=== PATIENT | female | born 1935 | race Hispanic/Latino ===

== ENCOUNTER 2019-05-18 11:47 | Emergency (ER) | payer MEDICARE, OTHER ==
[~2019-05-18] VITALS: Ht 154.9 cm; Wt 62.3 kg
[2019-05-18] MEDS ORDERED: NASONEX17 GM (13:06)
[2019-05-18] MEDS ORDERED: AMOXICILLIN250 MG PO (13:07)
[2019-05-18] MEDS ORDERED: MYLANTA GAS MIN42 MG PEG (13:07)
[2019-05-18 13:25] VITALS: BP 164/71
== END 2019-05-18 13:20 | disposition home or self-care (01) ==
LOC: FSED 11:47
DX: H65.02 Acute serous otitis media, left ear (principal); I10 Essential (primary) hypertension
CPT/HCPCS: 99282

== ENCOUNTER 2019-10-18 21:42 | Inpatient (IN) | payer MEDICARE, OTHER ==
[~2019-10-18] VITALS: Ht 165.1 cm; Wt 63.5 kg
[~2019-10-18 21:42] MED LIST: AMOXICILLIN250 MG PO; MYLANTA GAS MIN42 MG PEG; NASONEX17 GM
[2019-10-18] MEDS ORDERED: ACETAMINOPHEN 325 MG TAB PO ONE (22:45)
--- NOTE | 2019-10-18 23:01 | Diagnostic Imaging Report ---
Examination: Single AP view of the chest. COMPARISON: None. INDICATION: Chills, fever, diarrhea for one day IMPRESSION: 1. Lines and Tubes: None 2. Lungs are hypoinflated. Diffuse bilateral interstitial and alveolar opacities extending from the kevon. Likely small left pleural effusion. This may represent CHF with interstitial and alveolar pulmonary edema, however, multifocal pneumonia, including viral, could be considered in the appropriate clinical setting. 3. Cardiac silhouette is obscured. Marked central pulmonary vascular congestion. Atherosclerotic calcification of the aortic arch. 4. No acute bony abnormalities. Generalized osteopenia. Signed by: Dr. Ted Gates M.D. on 10/18/2019 10:58 PM
[2019-10-19] VITALS (7 sets, daily range): BP systolic 139–154; BP diastolic 53–65
[2019-10-19] MEDS ORDERED: ASPIRIN 81 MG CHEW TAB PO ONE
[2019-10-19] MEDS ORDERED: AZITHROMYCIN 500MG/NS 250 ML 250 ML IV ONE
[2019-10-19] MEDS ORDERED: DEXAMETHASONE SOD PHOS 10 MG/1 ML VIAL IV ONE
[2019-10-19] MEDS ORDERED: SODIUM CHLORIDE 0.9% 1000ML 1,000 ML IV SCH
[2019-10-19] MEDS ORDERED: CEFTRIAXONE SOD 1 GM/NS 50 ML 50 ML IV ONE
[2019-10-19] MEDS ORDERED: ONDANSETRON HCL INJ 2MG/ML 2ML 2 MG/ML VIAL IV PRN
--- NOTE | 2019-10-19 01:44 | NUR ---
AWAITING [facility] ROOM ASSIGNMENT
--- NOTE | 2019-10-19 02:52 | NUR ---
CALLED [facility] FOR TRANSPORT TO [facility]. ETA 30-45MINS
--- NOTE | 2019-10-19 04:04 | NUR ---
REPORT TO RASHID WALTON FOR [facility]
--- NOTE | 2019-10-19 04:10 | NUR ---
patient is a new admit that arrived via stretcher. patient is awake and talking. patient has been transferred into the bed. bed is in the lowest position and call light is within reach. will continue to monitor patient.
--- NOTE | 2019-10-19 06:54 | NUR ---
RECEIVED BEDSIDE SHIFT REPORT FROM OFF GOING NURSE. PATIENT IS RESTING IN BED. NO ACUTE DISTRESS NOTED AT THIS TIME. CALL LIGHT WITHIN REACH. BED IN THE LOWEST POSITION.
--- NOTE | 2019-10-19 07:15 | NUR ---
report given to day nurse.
--- NOTE | 2019-10-19 07:57 | NUR ---
CALLED DAUGHTER JEREMY HELTON TO OBTAIN LIST OF HOME MEDICATIONS. NO ANSWER, LVM.
[2019-10-19 08:14] LABS: CREATINE KINASE MB 1.6 ng/mL (0-5.0)
[2019-10-19] MEDS ORDERED: FUROSEMIDE INJ 10 MG/ML 4 ML VIAL IV SCH (08:15)
[2019-10-19] MEDS ORDERED: CARVEDILOL12.5 MG PO (09:33)
[2019-10-19] MEDS ORDERED: POTASSIUM CHLO20 ME1 PO (09:33)
[2019-10-19] MEDS ORDERED: LASIX20 MG PO (09:33)
[2019-10-19] MEDS ORDERED: SODIUM CHLORIDE 0.9% 50ML 50 ML ONE (10:42)
[2019-10-19] MEDS ORDERED: IOPAMIDOL 370 MG/ML 200 ML INFUS..BTL INJ ONE (10:42)
[2019-10-19 10:49] LABS: BASOPHILS % 0.2 % (0.0-1.0); EOSINOPHILS % 0.1 % (0.0-6.0); HEMATOCRIT 34.6 % (34.2-44.1); HEMOGLOBIN 11.8 g/dL (12.0-16.0); LYMPHOCYTES # (AUTO) 1.4 (1.0-3.2); LYMPHOCYTES % 12.3 % (18.0-39.1); MEAN CORPUSCULAR HEMOGLOBIN 29.4 pg (28-32); MEAN CORPUSCULAR HGB CONC 34.1 g/dL (31-35); MEAN CORPUSCULAR VOLUME 86.1 fL (81-99); MONOCYTES # (AUTO) 1.2 (0.2-0.8); MONOCYTES % 10.4 % (4.4-11.3); NEUTROPHILS % 76.6 % (38.7-80.0); PLATELET COUNT 189 x10e3/uL (140-360); RED BLOOD COUNT 4.02 x10e6/uL (3.6-5.1); RED CELL DISTRIBUTION WIDTH 13.2 % (11.7-14.4)
[2019-10-19 11:00] LABS: ANION GAP 13.6 mmol/L (8-16); CALCIUM 8.8 mg/dL (8.4-10.2); CREATININE, SERUM 1.62 mg/dL (0.57-1.11); POTASSIUM 3.6 mmol/L (3.5-5.1)
[2019-10-19] MEDS ORDERED: GUAIFENESIN/CODEINE 10 ML CUP PO PRN (11:15)
[2019-10-19] MEDS ORDERED: DEXTROSE 50% SYRINGE 50 ML IV PRN (11:15)
[2019-10-19] MEDS ORDERED: BENZONATATE 100 MG CAP PO PRN (11:15)
--- NOTE | 2019-10-19 11:38 | History and Physical ---
CHIEF COMPLAINT: Cough, congestion, and subjective fever. HISTORY OF PRESENT ILLNESS: An 84-year-old female, who has a history of hypertension, comes in today as a direct admission [facility] with complaints of cough, congestion, and subjective fever ongoing for the last 3 to 4 days. The patient recently saw her primary care physician and was told to take some increase Lasix. She reports she initially felt well, but then progressively got worse. She reports having cough, congestion, and subjective fever. Denies any recent travel. No sick contacts at home. The patient is being admitted to rule out for COVID. The patient was seen and evaluated at bedside on the medical floor. She is currently doing well. She is on a non-rebreather. Pulmonary and ID has been consulted. REVIEW OF SYSTEMS: Pertinent positive: Cough, congestion, and fever. The rest of 14-point review of systems have been reviewed with the patient and are negative. ALLERGIES: NO KNOWN DRUG ALLERGIES. HOME MEDICATIONS: Coreg 12.5 mg p.o. b.i.d., Lasix, and potassium supplements. PAST MEDICAL HISTORY: Hypertension and morbidly obese. PAST SURGICAL HISTORY: Reports none. FAMILY HISTORY: Hypertension and diabetes. SOCIAL HISTORY: No drugs. No alcohol. Does not smoke. Good social support. PHYSICAL EXAMINATION: VITAL SIGNS: Temperature is 98, pulse 79, respiratory rate is 34, blood pressure 146/65, and pulse ox 92%. She is on a 15 L non-rebreather. GENERAL: Not in acute distress. Alert and oriented x3. She is on 15 L non-rebreather. PULMONARY: No wheezing, rales, or rhonchi. CARDIOVASCULAR: Positive S1 and S2. No murmurs, rubs, or gallops appreciated. ABDOMEN: Soft, nondistended, and nontender to palpation. Bowel sounds present. MUSCULOSKELETAL: Strength is 5/5 throughout. No evidence of any muscle deficits on examination. No weakness appreciated. NEUROLOGIC: Cranial nerves 2 through 12 grossly intact. No evidence of any neurological deficits on exam. SKIN: Intact. Warm to touch. Good cap refill. PSYCHIATRIC: Normal affect and mood. EXTREMITIES: No edema. Good range of motion throughout. LABORATORY FINDINGS: Show white count 11.7, hemoglobin 11.8, hematocrit is 34.6, and platelets of 189. The chemistries are pending. Her troponin 0.039. Coronavirus is pending. MICROBIOLOGY: Blood cultures are pending. IMAGING STUDIES: Chest x-ray shows diffuse bilateral interstitial alveolar opacities extending from the hilum, likely small left pleural effusion. IMPRESSION: 1. Acute respiratory distress, concerns for COVID-19 pneumonia. 2. Hypotension. 3. Shortness of breath secondary to #1. PLAN: At this time, the patient's symptomatology and imaging studies concerning for COVID-19. The patient received IV antibiotics and dexamethasone already at the [facility]. We will continue with steroids, dexamethasone, and vitamins. Get Pulmonary and ID consultation. Stop fluids. Lasix 80 mg IV x1 given. She is on a non-rebreather. We will put her on ProAir to help with her underlying shortness of breath. Put on Lovenox 40 mg subcutaneous b.i.d. We will get inflammatory markers. Put on a heart healthy diet. Discussed plan of care with nursing staff. I also discussed the plan of care with the patient at bedside using a glazier supervisor. MD JONELLE Aldrich/MODL /[id number]
--- NOTE | 2019-10-19 12:13 | Diagnostic Imaging Report ---
EXAM: CT Chest WITH contrast- Pulmonary Embolism Protocol INDICATION: Shortness of breath COMPARISON: None TECHNIQUE: Chest was scanned utilizing a multidetector helical scanner from the lung apex through the level of the diaphragm after administration of IV contrast. Thin section reconstructions were obtained with special concentration on the pulmonary arteries. Coronal and sagittal reformations were obtained. Pulmonary embolism protocol was performed. IV CONTRAST: 100 cc of Isovue 370 RADIATION DOSE: Total DLP: 528 mGy*cm Dose modulation, iterative reconstruction, and/or weight based adjustment of the mA/kV was utilized to reduce the radiation dose to as low as reasonably achievable. COMPLICATIONS: None FINDINGS: LINES/ TUBES: None. PULMONARY ARTERIES: No filling defect is identified within the pulmonary arteries to the segmental level. The subsegmental pulmonary arteries are not well opacified. Main pulmonary artery measures 2.2 cm in diameter. No right heart strain. LUNGS AND AIRWAYS: The central airways are patent. Bilateral dependent lower lobe subsegmental atelectasis. Multifocal consolidative opacities at the right upper lobe. Geographic groundglass opacities and smooth interlobular septal thickening consistent with component of pulmonary edema. PLEURA: Moderate bilateral pleural effusions. No pneumothorax. HEART AND MEDIASTINUM: The thyroid gland is normal. No mediastinal, hilar or axillary lymphadenopathy. The heart is normal in size.. There is no pericardial effusion. Scattered atherosclerotic calcifications of the thoracic aorta.. UPPER ABDOMEN: Multiple hepatic cysts, the largest measuring up to 5.6 cm and the left liver. No acute findings in the upper abdomen. BONES: No acute osseous injury. No suspicious lytic or blastic lesions. SOFT TISSUES: Unremarkable. IMPRESSION: No pulmonary embolism. Mild pulmonary edema and moderate bilateral pleural effusions. Dependent bilateral lower lobe subsegmental atelectasis. Scattered consolidative opacities at the right upper lobe may represent superimposed aspiration or pneumonia in the proper clinical setting. Signed by: Rohan Elliott MD on 10/19/2019 12:09 PM
[2019-10-19] MEDS ORDERED: SODIUM CHLORIDE 0.9% 250ML 250 ML IV ONE (12:15)
[2019-10-19] MEDS: DEXAMETHASONE SOD PHOS INJ 4 MG/ML VIAL IV SCH (12:29)
[2019-10-19] MEDS: ZINC SULFATE 220 MG CAP PO SCH (12:30)
[2019-10-19] MEDS: CEFTRIAXONE SOD 1 GM/NS 50 ML 50 ML IV SCH (12:30)
[2019-10-19] MEDS: PANTOPRAZOLE SOD 40 MG TABEC PO SCH (12:30)
--- NOTE | 2019-10-19 12:30 | NUR ---
PER DR. ROWE, PATIENT IS TO GET 250ML OF NS AFTER CT. PATIENT IS RECEIVING THE 250ML FROM NS BAG 1,000ML STARTED WHEN ADMITTED.
[2019-10-19] MEDS: SIMETHICONE 80 MG CHEW PO PRN (12:34)
[2019-10-19] MEDS: AZITHROMYCIN 500MG/NS 250 ML 250 ML IV SCH (13:44)
--- NOTE | 2019-10-19 14:35 | NUR ---
An 84-year-old female, who has a history of hypertension, comes in today as a direct admission [facility] with complaints of cough, congestion, and subjective fever ongoing for the last 3 to 4 days. The patient recently saw her primary care physician and was told to take some increase Lasix. She reports she initially felt well, but then progressively got worse. She reports having cough, congestion, and subjective fever. Denies any recent travel. No sick contacts at home. The patient is being admitted to rule out for COVID. The patient was seen and evaluated at bedside on the medical floor. She is currently doing well. She is on a non-rebreather. Pulmonary and ID has been consulted. REVIEW OF SYSTEMS: Pertinent positive: Cough, congestion, and fever. The rest of 14-point review of systems have been reviewed with the patient and are negative. ALLERGIES: NO KNOWN DRUG ALLERGIES. HOME MEDICATIONS: Coreg 12.5 mg p.o. b.i.d., Lasix, and potassium supplements. PAST MEDICAL HISTORY: Hypertension and morbidly obese. PAST SURGICAL HISTORY: Reports none. FAMILY HISTORY: Hypertension and diabetes. SOCIAL HISTORY: No drugs. No alcohol. Does not smoke. Good social support. [id number]
[2019-10-19] MEDS: ENOXAPARIN SOD INJ 40 MG/0.4 ML SYR SC SCH (15:22)
--- NOTE | 2019-10-19 16:10 | Consultation ---
DATE OF CONSULTATION: HISTORY OF PRESENT ILLNESS: Ms. Moore is an 84-year-old female, who comes in with one-week history of fever, chills, not feeling well, some abdominal discomfort. The patient became weak. The patient, who is currently lying in bed comfortably, just weak and have some abdominal pain as mentioned above. Ms. Moore is currently on 15% non-rebreather, short of breath. PAST MEDICAL HISTORY: As above. PAST SURGICAL HISTORY: As above. ALLERGIES: NKA. LABORATORY DATA: White count 11.7 and hemoglobin 11. Her COVID-19 still pending. Her sodium 138, potassium 3.6, and creatinine 1.62. PHYSICAL EXAMINATION: GENERAL: She is currently alert, comfortable. VITAL SIGNS: Stable, currently afebrile. HEENT: Not icteric. CHEST: Crackles. HEART: S1 and S2. No murmur. ABDOMEN: Soft. IMPRESSION: Very suspicious for COVID-19, await confirmation, respiratory failure. Agree Rocephin 1 g daily 5 days, azithromycin 500 mg daily for 3 days, dexamethasone for 10 days. With her kidney function, she is not a candidate for remdesivir. Also lowered her Lovenox to 40 mg daily. Continue oxygenation support. We will follow. MD CODI Unger/MODL /[id number]
[2019-10-19] MEDS: CARVEDILOL 12.5 MG TAB PO SCH (16:38)
[2019-10-19] MEDS: ASCORBIC ACID 500 MG TAB PO SCH (16:38)
--- NOTE | 2019-10-19 19:07 | NUR ---
BEDSIDE SHIFT REPORT GIVEN TO ONCOMING NURSE. PATIENT IS IN STABLE CONDITION, NO ACUTE DISTRESS NOTED AT THIS TIME. CALL LIGHT WITHIN REACH. BED IN THE LOWEST POSITION.
--- NOTE | 2019-10-19 19:16 | Consultation ---
DATE OF CONSULTATION: Pulmonary Critical Care Consultation CHIEF COMPLAINT: Dyspnea and cough. HISTORY OF PRESENT ILLNESS: The patient is an 84-year-old woman. She has a history of hypertension and prior congestive heart failure. [facility] complaining of worsening cough and dyspnea for 3 to 4 days. She subsequently had a CT scan of the chest that showed no pulmonary embolism. She had bilateral effusions and cephalization consistent with pulmonary edema. There is also some infiltrate in the right upper lobe suggesting possible superimposed pneumonia. PAST SURGICAL HISTORY: Not obtainable. PAST MEDICAL HISTORY: 1. Congestive heart failure. 2. Hypertension. FAMILY HISTORY: Family history is significant for diabetes in hypertension. SOCIAL HISTORY: The patient is not an active smoker. She is not an active drinker. REVIEW OF SYSTEMS: The patient complains of dyspnea and cough that has been worsening over the past several days. She did have a temperature to 100.7. She has no headache. She has no neck pain. She is not having any chest pain. She does note some cough. She has no abdominal pain. She has no nausea vomiting. She has some mild leg edema. PHYSICAL EXAMINATION: VITAL SIGNS: The blood pressure is 149/61, saturation is 93% on a non-rebreather. HEENT: Shows no facial swelling or erythema. CARDIAC: Reveals regular rate and rhythm with normal S1 and S2. LUNGS: Auscultation of lungs reveals crackles and rhonchi at the bases. There is no wheezing. ABDOMEN: Soft and nontender. There is no rebound or guarding. EXTREMITIES: Shows mild leg edema. NEUROLOGIC: Shows no focal abnormalities. LABORATORY DATA: White blood cell count is 11.7 and hemoglobin is 11.8. The platelet count is 189. BUN to creatinine ratio is 41 to 1.62 and the other electrolytes are within normal limits. IMPRESSION: 1. Acute on chronic heart failure, unspecified. 2. Acute respiratory failure. 3. Right upper lobe infiltrate suggesting possible superimposed pneumonia. 4. Acute kidney injury. 5. Hypertension. 6. Possible COVID-19 infection. PLAN: 1. Echocardiogram and BNP. 2. Lasix. 3. Cardiology consultation. 4. Continue Zithromax and Rocephin. 5. Await COVID-19 testing. 6. ABG. 7. Wean oxygen as tolerated. MD RUBÉN Lovell/UNAL /[id number]
--- NOTE | 2019-10-19 19:20 | NUR ---
Patient visited in room during nursing rounds. Patient alert and oriented x3. Dutch speaking and understand little gibraltarian language. Ambulatory with standby assist prn in room. On 15L Non-rebreather mask at this time with O2 sat at 96%. Pt receiving NS at 50 for max of 250ml per MD order then saline locked. Call mcwilliams within reach. Will monitor pt closely.
[2019-10-19 20:15] LABS: ABG PCO2 30 mmHg (35-45); ABG PH 7.47 (7.35-7.45)
[2019-10-19 20:16] LABS: ABG HCO3 22 mmol/L (22-26); ABG PO2 62 mmHg (80-105)
[2019-10-19] MEDS: FUROSEMIDE INJ 10 MG/ML 4 ML VIAL IV SCH (20:40)
[2019-10-19] MEDS ORDERED: ENOXAPARIN SOD INJ 40 MG/0.4 ML SYR SC SCH (21:00)
--- NOTE | 2019-10-19 22:48 | NUR ---
Patient ate snack (2 khanh crackers and 1 cup low fat milk).
[2019-10-20] VITALS (8 sets, daily range): BP systolic 132–154; BP diastolic 47–69
[2019-10-20 05:47] LABS: BASOPHILS % 0.1 % (0.0-1.0); HEMATOCRIT 31.9 % (34.2-44.1); LYMPHOCYTES # (AUTO) 0.8 (1.0-3.2); LYMPHOCYTES % 7.4 % (18.0-39.1); MEAN CORPUSCULAR HEMOGLOBIN 28.9 pg (28-32); MEAN CORPUSCULAR HGB CONC 34.5 g/dL (31-35); MEAN CORPUSCULAR VOLUME 83.9 fL (81-99); MONOCYTES # (AUTO) 0.4 (0.2-0.8); MONOCYTES % 4.1 % (4.4-11.3); NEUTROPHILS # (AUTO) 9.2 (2.1-6.9); NEUTROPHILS % 87.8 % (38.7-80.0); PLATELET COUNT 207 x10e3/uL (140-360)
[2019-10-20 06:20] LABS: ALBUMIN 3.1 g/dL (3.5-5.0); ALBUMIN/GLOBULIN RATIO 0.7 (0.8-2.0); ANION GAP 16.4 mmol/L (8-16); CALCIUM 8.5 mg/dL (8.4-10.2); CREATININE, SERUM 1.81 mg/dL (0.57-1.11); POTASSIUM 3.4 mmol/L (3.5-5.1)
--- NOTE | 2019-10-20 06:42 | NUR ---
RECEIVED BEDSIDE SHIFT REPORT FROM OFF GOING NURSE. PATIENT IS RESTING IN BED, NO S/S OF ACUTE DISTRESS NOTED. CALL LIGHT WITHIN REACH. BED IN THE LOWEST POSITION.
[2019-10-20] MEDS: FUROSEMIDE INJ 10 MG/ML 4 ML VIAL IV SCH ×2 (08:26→22:00)
[2019-10-20] MEDS: PANTOPRAZOLE SOD 40 MG TABEC PO SCH (08:26)
[2019-10-20] MEDS: DEXAMETHASONE SOD PHOS INJ 4 MG/ML VIAL IV SCH (08:26)
[2019-10-20] MEDS: ZINC SULFATE 220 MG CAP PO SCH (08:27)
[2019-10-20] MEDS: ASCORBIC ACID 500 MG TAB PO SCH ×2 (08:27→16:59)
[2019-10-20] MEDS: CARVEDILOL 12.5 MG TAB PO SCH ×2 (08:27→16:59)
[2019-10-20] MEDS: CEFTRIAXONE SOD 1 GM/NS 50 ML 50 ML IV SCH (12:00)
--- NOTE | 2019-10-20 12:07 | NUR ---
NOTIFIED DR. CARSON OF PATIENT'S BG OF 220. PATIENT WAS ON STEROIDS, ORDER DCD BY MD. WAITING RADIO PROGRAM CHECKER BACK.
[2019-10-20] MEDS ORDERED: POTASSIUM CHLORIDE 20 MEQ TAB CR PO SCH (12:15)
[2019-10-20] MEDS: AZITHROMYCIN 500MG/NS 250 ML 250 ML IV SCH (12:40)
[2019-10-20] MEDS: ENOXAPARIN SOD INJ 40 MG/0.4 ML SYR SC SCH (14:00)
--- NOTE | 2019-10-20 15:26 | Progress Note ---
DATE: 10/20/2019 Medicine Progress Note SUBJECTIVE: The patient is doing a little better today with no complaints. She states she is breathing much better now after given IV diuretics. No overnight events. COVID was found to be negative. PHYSICAL EXAMINATION: VITAL SIGNS: Temperature is 97.9, pulse 66, respiratory rate is 22, blood pressure 140/65, pulse ox 98% and she is on 6 L of nasal cannula. GENERAL: Not in acute distress. Alert and oriented x3. Cooperative on examination. HEENT: Head; normocephalic, atraumatic. Eyes; pupils are equal, round, and reactive to light bilaterally. Extraocular movements intact bilaterally. Throat; no evidence of erythema or exudates in the posterior pharynx. Has poor dentition. NECK: Supple. Good range of motion. PULMONARY: Clear to auscultation bilaterally. No wheezing, no rales, no rhonchi, no crackles appreciated. CARDIOVASCULAR: Positive S1 and S2. No murmurs, rubs, or gallops appreciated. ABDOMEN: Soft, nondistended, and nontender to palpation. Bowel sounds present. MUSCULOSKELETAL: Strength is 5/5 throughout. No evidence of any muscle deficits on examination. No weakness appreciated. NEUROLOGIC: Alert and oriented x3. SKIN: Intact. Warm to touch. Good cap refill. PSYCHIATRIC: Normal affect and mood. EXTREMITIES: No edema. Good range of motion throughout. LABORATORY DATA: Show white count 10.4, hemoglobin 11, hematocrit is 31.9, and platelets of 207. Chemistry; sodium 139, potassium 3.4, chloride 103, bicarb 23, anion gap of 16, BUN is 47, creatinine is 1.81, glucose is 150, and calcium is 8.5. LFTs within normal range. Albumin was 3.1. Coronavirus not detected. MICROBIOLOGY: Blood cultures, no growth to date. IMAGING: CT chest impression shows no evidence of pulmonary embolism. Mild pulmonary edema with moderate bilateral pleural effusion. Scattered consolidative opacities at the right upper lobe may represent superimposed aspiration or pneumonia in the appropriate clinical setting. IMPRESSION: 1. Acute respiratory distress secondary to pulmonary edema. 2. Acute exacerbation of congestive heart failure with systolic dysfunction. 3. COVID-19 pneumonia negative. 4. Community-acquired pneumonia. PLAN: At this time, I stopped the IV dexamethasone. Continue with IV antibiotics for possible community-acquired pneumonia. She is doing actually much better. She is on Lasix 80 mg b.i.d. Pulmonary and ID are following closely. I did decrease the Lovenox to subcutaneous daily. The patient's primary global engineering manager has been consulted as well. Get morning labs. 2D echo is pending. Otherwise, the patient is doing much better. Discussed plan of care with the patient and nursing staff. MD JONELLE Aldrich/SANDIE /[id number]
--- NOTE | 2019-10-20 16:50 | NUR ---
DR. CARSON NOTIFIED OF OF 256, WAITING CREDIT ANALYSIS MANAGER BACK.
--- NOTE | 2019-10-20 18:12 | NUR ---
Dyspnea and cough. HISTORY OF PRESENT ILLNESS: The patient is an 84-year-old woman. She has a history of hypertension and prior congestive heart failure. [facility] complaining of worsening cough and dyspnea for 3 to 4 days. She subsequently had a CT scan of the chest that showed no pulmonary embolism. She had bilateral effusions and cephalization consistent with pulmonary edema. There is also some infiltrate in the right upper lobe suggesting possible superimposed pneumonia. PHYSICAL EXAMINATION: GENERAL: She is currently alert, comfortable. VITAL SIGNS: Stable, currently afebrile. HEENT: Not icteric. CHEST: Crackles. HEART: S1 and S2. No murmur. ABDOMEN: Soft.NT COVID NEG ATYPICAL PNEUMONIA 1. Acute respiratory distress secondary to pulmonary edema. 2. Acute exacerbation of congestive heart failure with systolic dysfunction. 3. COVID-19 pneumonia negative. 4. Community-acquired pneumonia. CONT ABX CONT OXGYGEN
--- NOTE | 2019-10-20 19:32 | NUR ---
BEDSIDE SHIFT REPORT GIVEN TO ONCOMING NURSE. NO ACUTE DISTRESS NOTED AT THIS TIME. CALL LIGHT WITHIN REACH. BED IN THE LOWEST POSITION.
--- NOTE | 2019-10-20 19:45 | NUR ---
Patient visited in room during nursing rounds. Patient alert and oriented x3. Northern Irish speaking and understand little belizean language. Ambulatory with standby assist prn in room. On 6L nasal cannula at this time with O2 sat at 92%. Pt was transferred from Rm 297 to Rm 295 after covid result came out negative. Call mcwilliams within reach. Will monitor pt closely.
[2019-10-21] VITALS (7 sets, daily range): BP systolic 146–168; BP diastolic 55–86
[2019-10-21] MEDS: HYDROCODONE/APAP 5MG-325MG TAB PO PRN ×2 (01:24→21:57)
[2019-10-21 06:09] LABS: HEMATOCRIT 31.6 % (34.2-44.1); HEMOGLOBIN 11.4 g/dL (12.0-16.0); LYMPHOCYTES # (AUTO) 0.8 (1.0-3.2); LYMPHOCYTES % 7.7 % (18.0-39.1); MEAN CORPUSCULAR HGB CONC 36.1 g/dL (31-35); MEAN CORPUSCULAR VOLUME 85.9 fL (81-99); MONOCYTES # (AUTO) 0.7 (0.2-0.8); MONOCYTES % 6.3 % (4.4-11.3); NEUTROPHILS # (AUTO) 9.2 (2.1-6.9); NEUTROPHILS % 85.3 % (38.7-80.0); PLATELET COUNT 216 x10e3/uL (140-360); RED BLOOD COUNT 3.68 x10e6/uL (3.6-5.1); RED CELL DISTRIBUTION WIDTH 13.2 % (11.7-14.4)
[2019-10-21 06:38] LABS: ANION GAP 15.5 mmol/L (8-16); CALCIUM 8.1 mg/dL (8.4-10.2); CREATININE, SERUM 1.61 mg/dL (0.57-1.11); POTASSIUM 3.5 mmol/L (3.5-5.1)
[2019-10-21] MEDS: FUROSEMIDE INJ 10 MG/ML 4 ML VIAL IV SCH (08:40)
[2019-10-21] MEDS: PANTOPRAZOLE SOD 40 MG TABEC PO SCH (08:40)
[2019-10-21] MEDS: CARVEDILOL 12.5 MG TAB PO SCH ×2 (08:41→17:28)
[2019-10-21] MEDS: ASCORBIC ACID 500 MG TAB PO SCH ×2 (08:41→17:28)
[2019-10-21] MEDS: ZINC SULFATE 220 MG CAP PO SCH (08:41)
[2019-10-21] MEDS ORDERED: SODIUM CHLORIDE 0.9% 250ML 250 ML ONE (11:10)
[2019-10-21] MEDS: CEFTRIAXONE SOD 1 GM/NS 50 ML 50 ML IV SCH (12:08)
[2019-10-21] MEDS: AZITHROMYCIN 500MG/NS 250 ML 250 ML IV SCH (12:40)
[2019-10-21] MEDS: FUROSEMIDE INJ 100 MG in SODIUM CHLORIDE 0.9% 100 ML 90 ML IV SCH (14:20)
--- NOTE | 2019-10-21 14:57 | NUR ---
this is infectious disease progress note patient is doing well and there is no new complaints lying in bed comfortably. laboratory review of chart reviewed medication list reviewed. The patient is doing a little better today with no complaints. She states she is breathing much better now after given IV diuretics. No overnight events. COVID was found to be negative. PHYSICAL EXAMINATION: VITAL SIGNS: Temperature is 97.9, pulse 66, respiratory rate is 22, blood pressure 140/65, pulse ox 98% and she is on 6 L of nasal cannula. GENERAL: Not in acute distress. Alert and oriented x3. Cooperative on examination. HEENT: Head; normocephalic, atraumatic. Eyes; pupils are equal, round, and reactive to light bilaterally. Extraocular movements intact bilaterally. Throat; no evidence of erythema or exudates in the posterior pharynx. Has poor dentition. NECK: Supple. Good range of motion. PULMONARY: Clear to auscultation bilaterally. No wheezing, no rales, no rhonchi, no crackles appreciated. CARDIOVASCULAR: Positive S1 and S2. No murmurs, rubs, or gallops appreciated. ABDOMEN: Soft, nondistended, and nontender to palpation. Bowel sounds present. MUSCULOSKELETAL: Strength is 5/5 throughout. No evidence of any muscle deficits on examination. No weakness appreciated. NEUROLOGIC: Alert and oriented x3. SKIN: Intact. Warm to touch. Good cap refill. PSYCHIATRIC: Normal affect and mood. EXTREMITIES: No edema. Good range of motion throughout. LABORATORY DATA: Show white count 10.4, hemoglobin 11, hematocrit is 31.9, and platelets of 207. Chemistry; sodium 139, potassium 3.4, chloride 103, bicarb 23, anion gap of 16, BUN is 47, creatinine is 1.81, glucose is 150, and calcium is 8.5. LFTs within normal range. Albumin was 3.1. Coronavirus not detected. MICROBIOLOGY: Blood cultures, no growth to date. IMAGING: CT chest impression shows no evidence of pulmonary embolism. Mild pulmonary edema with moderate bilateral pleural effusion. Scattered consolidative opacities at the right upper lobe may represent superimposed aspiration or pneumonia in the appropriate clinical setting. IMPRESSION: 1. Acute respiratory distress secondary to pulmonary edema. 2. Acute exacerbation of congestive heart failure with systolic dysfunction. 3. COVID-19 pneumonia negative. 4. Community-acquired pneumonia. can change to oral antibiotic Levaquin to finish 8 days Continue with supportive care
--- NOTE | 2019-10-21 16:28 | Progress Note ---
DATE: 10/21/2019 Medicine Progress Note SUBJECTIVE: The patient is doing much better. She still reports a little bit of shortness of breath. No overnight events. PHYSICAL EXAMINATION: VITAL SIGNS: Temperature 98.9, pulse 71, respiratory rate 16, blood pressure 157/60, and pulse ox 95%. She is on 6 L nasal cannula, but downtrending to 4 L according to the nurse. GENERAL: Not in acute distress. Alert and oriented x3. Cooperative on examination. HEENT: Head is normocephalic, atraumatic. Eyes; pupils are reactive to light bilaterally. Extraocular muscles are intact bilaterally. Throat, no evidence of erythema or exudates in the posterior pharynx. Has poor dentition. NECK: Supple. Good range of motion. PULMONARY: Clear to auscultation bilaterally. No wheezing, rales, or rhonchi. No crackles appreciated. CARDIOVASCULAR: Positive S1 and S2. No murmurs, rubs, or gallops appreciated. ABDOMEN: Soft, nondistended, and nontender to palpation. Bowel sounds are present. MUSCULOSKELETAL: Strength is 5/5 throughout. No evidence of any muscle deficits on examination. SKIN: Intact. Warm to touch. Good capillary refill. PSYCHIATRIC: Normal affect and mood. EXTREMITIES: No edema. Good range of motion throughout. LABORATORY DATA: White count 10, hemoglobin 11, hematocrit 31, and platelets of 216. Chemistry; sodium 140, potassium 3.5, chloride 105, bicarb 23, anion gap of 15, BUN is 53, creatinine is 1.61, glucose 146, calcium is 8.1. MICROBIOLOGY: Blood cultures; no growth to date. IMAGING STUDIES: Nothing new. IMPRESSION: 1. Acute respiratory distress, secondary to pulmonary edema. 2. Acute exacerbation of congestive heart failure with systolic dysfunction. 3. COVID-19 pneumonia, negative. 4. Community-acquired pneumonia. PLAN: At this time, she is on IV antibiotics secondary for community-acquired pneumonia, being monitored by ID. I did go ahead and discontinue the Lasix pushes. The patient still reports shortness of breath. Put on Lasix drip at 5 mg/hour. Pulmonary and ID are following. I did she is on Lovenox for DVT prophylaxis. I am waiting on Cardiology's final recommendations. A 2D echo still pending. Continue same plan of care. She is not ready for discharge at this time. Get a.m. labs. MD JONELLE Aldrich/SANDIE /[id number]
[2019-10-21] MEDS: ENOXAPARIN SOD INJ 40 MG/0.4 ML SYR SC SCH (17:28)
--- NOTE | 2019-10-21 19:20 | NUR ---
Report given to oncoming nurse of patient's status. Resting in bed, side rails upx2, call light within reach. AAOX3 to time, person, place. Respirations even and unlabored. O2 6L NC.
--- NOTE | 2019-10-21 19:24 | Progress Note ---
DATE: SUBJECTIVE: The patient has some improvement. She is now on nasal cannula after diuresis. PHYSICAL EXAMINATION: VITAL SIGNS: The patient is afebrile. The blood pressure is 151/68, saturation is in the low 90s on 6 L. The pulse is 68. HEENT: Shows no facial swelling or erythema. CARDIAC: Reveals irregularly irregular rhythm with a systolic murmur. LUNGS: Auscultation of lungs reveals crackles at the bases. There is no wheezing. ABDOMEN: Soft, nontender. There is no rebound or guarding. EXTREMITIES: Shows no leg edema or calf tenderness. There is no cyanosis or clubbing. SKIN: Shows no rashes. LABORATORY DATA: BUN to creatinine ratio is 53 to 1.61. Other electrolytes are within normal limits and the blood sugar is 152. IMPRESSION: 1. Acute respiratory failure. 2. Acute on chronic systolic congestive heart failure. 3. Possible community-acquired pneumonia. 4. Acute kidney injury. 5. Hypertension. PLAN: 1. Continue current antibiotics. 2. Wean oxygen as tolerated. 3. Repeat chest x-ray. 4. Continue Lasix. 5. Monitor BUN and creatinine. 6. Await further input from Cardiology. Vega Sandy MD [facility]/UNAL /[id number]
--- NOTE | 2019-10-21 19:55 | Diagnostic Imaging Report ---
EXAMINATION: CHEST SINGLE (PORTABLE) INDICATION: ^pulmonary edema ^[id number] ^[id number] COMPARISON: CT scan 10/19/2019.Chest radiograph 10/18/2019 FINDINGS: TUBES and LINES: None. LUNGS: Scattered consolidative lung opacities worrisome for multifocal pneumonia. PLEURA: Moderate sized pleural effusions. No pneumothorax HEART AND MEDIASTINUM: The cardiomediastinal silhouette is obscured. BONES AND SOFT TISSUES: No acute osseous lesion. Soft tissues are unremarkable. UPPER ABDOMEN: No free air under the diaphragm. IMPRESSION: Scattered consolidative lung opacities worrisome for multifocal pneumonia. This is worse when compared with chest radiograph 10/18/2019. Signed by: Dr. Ron Dial M.D. on 10/21/2019 7:52 PM
--- NOTE | 2019-10-21 21:10 | NUR ---
Resting in the bed.stable condition.phone and call light within reach.instructed to call for assistance as needed.
[2019-10-21] MEDS: DOCUSATE SODIUM LIQD 100 MG/10 ML UDC NG PRN (22:42)
[2019-10-22] VITALS (7 sets, daily range): BP systolic 153–168; BP diastolic 51–84
[2019-10-22 06:27] LABS: BASOPHILS % 0.1 % (0.0-1.0); EOSINOPHILS % 0.2 % (0.0-6.0); HEMATOCRIT 31.5 % (34.2-44.1); HEMOGLOBIN 11.4 g/dL (12.0-16.0); LYMPHOCYTES # (AUTO) 1.7 (1.0-3.2); LYMPHOCYTES % 15.5 % (18.0-39.1); MEAN CORPUSCULAR HEMOGLOBIN 32.1 pg (28-32); MEAN CORPUSCULAR HGB CONC 36.2 g/dL (31-35); MEAN CORPUSCULAR VOLUME 88.7 fL (81-99); MONOCYTES # (AUTO) 1.3 (0.2-0.8); MONOCYTES % 11.5 % (4.4-11.3); NEUTROPHILS % 71.3 % (38.7-80.0); PLATELET COUNT 185 x10e3/uL (140-360); RED BLOOD COUNT 3.55 x10e6/uL (3.6-5.1)
[2019-10-22 06:50] LABS: ANION GAP 16.4 mmol/L (8-16); CALCIUM 8.6 mg/dL (8.4-10.2); CREATININE, SERUM 1.5 mg/dL (0.57-1.11); POTASSIUM 3.4 mmol/L (3.5-5.1)
[2019-10-22] MEDS: ASCORBIC ACID 500 MG TAB PO SCH ×2 (09:29→16:53)
[2019-10-22] MEDS: CARVEDILOL 12.5 MG TAB PO SCH ×2 (09:29→16:53)
[2019-10-22] MEDS: ZINC SULFATE 220 MG CAP PO SCH (09:30)
[2019-10-22] MEDS: PANTOPRAZOLE SOD 40 MG TABEC PO SCH (09:30)
[2019-10-22] MEDS: DOCUSATE SODIUM LIQD 100 MG/10 ML UDC NG PRN (09:37)
[2019-10-22] MEDS: FUROSEMIDE INJ 100 MG in SODIUM CHLORIDE 0.9% 100 ML 90 ML IV SCH (09:38)
[2019-10-22] MEDS: CEFTRIAXONE SOD 1 GM/NS 50 ML 50 ML IV SCH (12:52)
[2019-10-22] MEDS: AZITHROMYCIN 500MG/NS 250 ML 250 ML IV SCH (13:23)
--- NOTE | 2019-10-22 15:44 | Progress Note ---
DATE: 10/22/2019 Medicine Progress Note SUBJECTIVE: The patient is doing well today with no complaints. Her shortness of breath improved. The patient reports breathing much better today. We did increase the Lasix drip. She has very good urine output. PHYSICAL EXAMINATION: VITAL SIGNS: She is afebrile, normotensive, respiratory rate is good. GENERAL: Not in acute distress. Alert and oriented x3. Cooperative on examination. HEENT: Head; normocephalic, atraumatic. Eyes; pupils are equal, round, and reactive to light bilaterally. Extraocular movements intact bilaterally. Throat; no evidence of erythema or exudates in the posterior pharynx. Has poor dentition. NECK: Supple. Good range of motion. PULMONARY: Clear to auscultation bilaterally. No wheezing, no rales, no rhonchi, no crackles appreciated. CARDIOVASCULAR: Positive S1 and S2. No murmurs, rubs, or gallops appreciated. ABDOMEN: Soft, nondistended, and nontender to palpation. Bowel sounds present. MUSCULOSKELETAL: Strength is 5/5 throughout. No evidence of any muscle deficits on examination. SKIN: Intact. Warm to touch. Good cap refill. PSYCHIATRIC: Normal affect and mood. EXTREMITIES: No edema. Good range of motion throughout. LABORATORY DATA: CBC; white count is 11, hemoglobin 11, hematocrit is 31, and platelets of 185. Chemistry reviewed shows a creatinine of 1.5 at her baseline. The rest electrolytes shows a potassium of 3.4, replaced. Blood cultures no growth. IMPRESSION: 1. Acute respiratory distress secondary to pulmonary. 2. Acute exacerbation of congestive heart failure with systolic dysfunction. 3. COVID-19 pneumonia-ruled out. 4. Community-acquired pneumonia. PLAN: At this time, she is breathing much better with the Lasix drip. Continue with the same plan of care. Replace electrolytes accordingly. IV antibiotics for community-acquired pneumonia. Pulmonary and ID are following. Lovenox for DVT prophylaxis. I am still awaiting for the 2D echo report to be read and final recommendations by Cardiology. MD JONELLE Aldrich/MODL /[id number]
[2019-10-22] MEDS: ENOXAPARIN SOD INJ 40 MG/0.4 ML SYR SC SCH (16:26)
[2019-10-22] MEDS: POTASSIUM CHLORIDE 20 MEQ TAB CR PO SCH ×2 (16:26→17:23)
--- NOTE | 2019-10-22 18:00 | NUR ---
he is afebrile, normotensive, respiratory rate is good. GENERAL: Not in acute distress. Alert and oriented x3. Cooperative on examination. HEENT: Head; normocephalic, atraumatic. Eyes; pupils are equal, round, and reactive to light bilaterally. Extraocular movements intact bilaterally. Throat; no evidence of erythema or exudates in the posterior pharynx. Has poor dentition. NECK: Supple. Good range of motion. PULMONARY: Clear to auscultation bilaterally. No wheezing, no rales, no rhonchi, no crackles appreciated. CARDIOVASCULAR: Positive S1 and S2. No murmurs, rubs, or gallops appreciated. ABDOMEN: Soft, nondistended, and nontender to palpation. Bowel sounds present. MUSCULOSKELETAL: Strength is 5/5 throughout. No evidence of any muscle deficits on examination. SKIN: Intact. Warm to touch. Good cap refill. PSYCHIATRIC: Normal affect and mood. EXTREMITIES: No edema. Good range of motion throughout. LABORATORY DATA: CBC; white count is 11, hemoglobin 11, hematocrit is 31, and platelets of 185. Chemistry reviewed shows a creatinine of 1.5 at her baseline. The rest electrolytes shows a potassium of 3.4, replaced. Blood cultures no growth. [id number]
--- NOTE | 2019-10-22 19:08 | NUR ---
Received the patient in report.lyeing in the bed.no pain voiced.stable condition.
--- NOTE | 2019-10-22 20:40 | Progress Note ---
DATE: SUBJECTIVE: Ms. Jelly Moore is doing well. There are no new complaints. PHYSICAL EXAMINATION: GENERAL: She is currently alert, oriented. VITALS: Stable, currently afebrile. HEENT: She is not icteric. NECK: Supple. CHEST: Clear. HEART: S1-S2. ABDOMEN: Soft. Bowel sounds present. EXTREMITIES: No edema. SKIN: No rash. IMPRESSION: Respiratory distress, improved. COVID-19 was ruled out. Community acquired pneumonia, resolved. The patient to be discharged home. We will discontinue her antibiotic, tomorrow will be day #5, but can discontinue antibiotic tomorrow and discharge planning was stable. MD CODI Unger/SANDIE /[id number]
[2019-10-23] VITALS (7 sets, daily range): BP systolic 143–170; BP diastolic 45–62
[2019-10-23 05:40] LABS: BASOPHILS % 0.1 % (0.0-1.0); EOSINOPHILS # (AUTO) 0.1 (0.0-0.4); EOSINOPHILS % 1.1 % (0.0-6.0); HEMATOCRIT 35.8 % (34.2-44.1); HEMOGLOBIN 12.4 g/dL (12.0-16.0); LYMPHOCYTES # (AUTO) 1.4 (1.0-3.2); LYMPHOCYTES % 15.4 % (18.0-39.1); MEAN CORPUSCULAR HEMOGLOBIN 29.8 pg (28-32); MEAN CORPUSCULAR HGB CONC 34.6 g/dL (31-35); MEAN CORPUSCULAR VOLUME 86.1 fL (81-99); MONOCYTES # (AUTO) 1.3 (0.2-0.8); MONOCYTES % 14.7 % (4.4-11.3); NEUTROPHILS # (AUTO) 6.1 (2.1-6.9); NEUTROPHILS % 67.8 % (38.7-80.0); PLATELET COUNT 238 x10e3/uL (140-360); RED BLOOD COUNT 4.16 x10e6/uL (3.6-5.1); RED CELL DISTRIBUTION WIDTH 13.1 % (11.7-14.4)
[2019-10-23 05:58] LABS: ANION GAP 15.6 mmol/L (8-16); CALCIUM 9.2 mg/dL (8.4-10.2); CREATININE, SERUM 1.4 mg/dL (0.57-1.11); POTASSIUM 3.6 mmol/L (3.5-5.1)
--- NOTE | 2019-10-23 07:05 | NUR ---
Bed side shift report given to oncoming RN.stable condition.
[2019-10-23] MEDS: PANTOPRAZOLE SOD 40 MG TABEC PO SCH (07:30)
[2019-10-23] MEDS: CARVEDILOL 12.5 MG TAB PO SCH ×2 (09:00→16:30)
[2019-10-23] MEDS: ASCORBIC ACID 500 MG TAB PO SCH ×2 (10:39→16:17)
[2019-10-23] MEDS: ZINC SULFATE 220 MG CAP PO SCH (10:39)
[2019-10-23] MEDS: HYDROCODONE/APAP 5MG-325MG TAB PO PRN (10:41)
[2019-10-23] MEDS: DOCUSATE SODIUM LIQD 100 MG/10 ML UDC NG PRN (10:48)
[2019-10-23] MEDS: SIMETHICONE 80 MG CHEW PO PRN (10:48)
[2019-10-23] MEDS: CEFTRIAXONE SOD 1 GM/NS 50 ML 50 ML IV SCH (12:00)
[2019-10-23] MEDS: AZITHROMYCIN 500MG/NS 250 ML 250 ML IV SCH (13:30)
[2019-10-23] MEDS: FUROSEMIDE INJ 100 MG in SODIUM CHLORIDE 0.9% 100 ML 90 ML IV SCH (13:31)
--- NOTE | 2019-10-23 15:35 | Progress Note ---
DATE: 10/23/2019 Medicine Progress Note SUBJECTIVE: The patient reportedly feels much better today with no complaints. We will continue with the Lasix drip for now as her renal function actually improved. LABORATORY FINDINGS: White count 8.9, hemoglobin 12, hematocrit 35.8, and platelets of 238. Chemistry; sodium 139, potassium 3.6, chloride 102, bicarb 25, anion gap of 15, BUN is 41, creatinine is 1.4, and glucose was 153. Coronavirus not detected. MICROBIOLOGY: None. IMAGING DATA: Chest x-ray, none. PHYSICAL EXAMINATION: VITAL SIGNS: Temperature is 98.6, pulse 55, respiratory rate is 18, blood pressure 143/56, and pulse ox 99% on room air. GENERAL: Not in acute distress. And oriented x3. Cooperative on examination. PULMONARY: Clear to auscultation bilaterally. No wheezing, rales, or rhonchi. No crackles appreciated. CARDIOVASCULAR: Positive S1, S2. No murmurs, rubs, or gallops appreciated. ABDOMEN: Soft, nondistended, tender to palpation. Bowel sounds present. MUSCULOSKELETAL: Strength is 5/5 throughout. No evidence of any muscle deficits on examination. No weakness appreciated. NEUROLOGICAL: Cranial nerves II through XII grossly intact. No evidence of any neurological deficits on exam. SKIN: Intact. Warm to touch. Good cap refill. PSYCHIATRIC: Normal affect and mood. EXTREMITIES: No edema. Good range of motion throughout. IMPRESSION: 1. Acute respiratory distress secondary to pulmonary edema. 2. Acute exacerbation of congestive heart failure with systolic dysfunction. 3. Coronavirus disease-19 pneumonia-ruled out. 4. Community-acquired pneumonia. PLAN: At this time, the patient's breathing is much better, which I will go ahead and continue with Lasix drip and replace potassium accordingly. Continue with IV antibiotics for community-acquired pneumonia. Since the patient is doing very well, we will consider discharge home tomorrow. Lovenox for DVT prophylaxis. As for the 2D echo still not available despite we have been waiting on this for significant period of time. I am going to have the nursing staff reach out to Cardiology. MD JONELLE Aldrich/SANDIE /[id number]
[2019-10-23] MEDS: ENOXAPARIN SOD INJ 40 MG/0.4 ML SYR SC SCH (16:17)
--- NOTE | 2019-10-23 17:28 | NUR ---
emperature is 98.6, pulse 55, respiratory rate is 18, blood pressure 143/56, and pulse ox 99% on room air. GENERAL: Not in acute distress. And oriented x3. Cooperative on examination. PULMONARY: Clear to auscultation bilaterally. No wheezing, rales, or rhonchi. No crackles appreciated. CARDIOVASCULAR: Positive S1, S2. No murmurs, rubs, or gallops appreciated. ABDOMEN: Soft, nondistended, tender to palpation. Bowel sounds present. MUSCULOSKELETAL: Strength is 5/5 throughout. No evidence of any muscle deficits on examination. No weakness appreciated. NEUROLOGICAL: Cranial nerves II through XII grossly intact. No evidence of any neurological deficits on exam. SKIN: Intact. Warm to touch. Good cap refill. PSYCHIATRIC: Normal affect and mood. EXTREMITIES: No edema. Good range of motion throughout. IMPRESSION: 1. Acute respiratory distress secondary to pulmonary edema [id number]
--- NOTE | 2019-10-23 19:08 | NUR ---
walking rounds complete, report given to oncoming nurse,
--- NOTE | 2019-10-23 19:56 | Progress Note ---
DATE: SUBJECTIVE: Ms. Moore is doing well. There are no new complaints. PHYSICAL EXAMINATION: GENERAL: She is currently alert, oriented. VITAL SIGNS: Stable, afebrile. HEENT: She is not icteric. NECK: Supple. CHEST: Clear. HEART: S1, S2. ABDOMEN: Soft. IMPRESSION: Respiratory failure, pulmonary edema, congestive heart failure, community-acquired pneumonia, stable from Infectious Disease point of view. Continue with Lasix. Discharge planning with to finish 8 days of antibiotic is noted. No new recommendation. MD CODI Unger/MODL /[id number]
--- NOTE | 2019-10-23 23:42 | Consultation ---
DATE OF CONSULTATION: 10/23/2019 Cardiology Consult Note REASON FOR CONSULT: CHF. CHIEF COMPLAINT: Shortness of breath. HISTORY OF PRESENT ILLNESS: An 84-year-old female, history of hypertension, CHF, and CKD, who presents with community-acquired pneumonia and shortness of breath, noted to be volume overloaded as well. Denies any chest pain, orthopnea, or PND. BNP on admission was elevated at 737, being treated with IV diuretics and antibiotics for community-acquired pneumonia. Not feeling better. PAST MEDICAL HISTORY: As per HPI. PAST SURGICAL HISTORY: Noncontributory. SOCIAL HISTORY: Does not smoke, drink, or abuse drugs. FAMILY HISTORY: Noncontributory. OUTPATIENT MEDICATIONS: Reviewed. ALLERGIES: REVIEWED. PHYSICAL EXAMINATION: VITAL SIGNS: Temperature afebrile, pulse 54, respiratory rate 18, blood pressure 163/57, and saturating 99% on nasal cannula. GENERAL: Elderly female, in no acute distress. CARDIOVASCULAR: Regular rate and rhythm. No murmurs, rubs, or gallops. LUNGS: Coarse breath sounds at bilateral bases. ABDOMEN: Soft, nontender, and nondistended. NEURO AND PSYCH: Alert and oriented. INPATIENT MEDICATIONS: Reviewed. LABORATORY DATA: Reviewed. Troponins negative. GFR 36. IMAGING DATA: Reviewed. Chest CT on admission showed no PE, mild pulmonary edema, effusions, and possible pneumonia. TELEMETRY DATA: Reviewed, shows normal sinus rhythm. Echocardiogram reviewed, shows normal LV function, impaired relaxation, severe valvular abnormality. ASSESSMENT: 1. [id number] diastolic congestive heart failure exacerbation. 2. Community-acquired pneumonia. PLAN: Currently diuresing well on IV Lasix. Can change to oral Lasix 40 mg daily starting tomorrow to double her normal outpatient dose and can go home on this dose with outpatient followup with me in the office in 1 to 2 weeks. Thank you for this consult. We will continue to follow. MD KAYLIN Corado/SANDIE /[id number]
[2019-10-24] VITALS (9 sets, daily range): BP systolic 157–177; BP diastolic 58–89
--- NOTE | 2019-10-24 05:54 | NUR ---
Patients blood pressure is 177/67. MD notified. MD states give patient morning medications when they are due.
[2019-10-24 06:23] LABS: ANION GAP 15.6 mmol/L (8-16); CALCIUM 9.7 mg/dL (8.4-10.2); CREATININE, SERUM 1.31 mg/dL (0.57-1.11); POTASSIUM 3.6 mmol/L (3.5-5.1)
--- NOTE | 2019-10-24 06:50 | NUR ---
report given to day nurse.
--- NOTE | 2019-10-24 07:35 | NUR ---
PATIENT IN BED RESTING WITH NO S/S OF DISTRESS. LASIX DRIP IN PROGRESS. BED IN LOWER POSITION, CALL LIGHT AT REACH.
[2019-10-24] MEDS: PANTOPRAZOLE SOD 40 MG TABEC PO SCH (08:00)
[2019-10-24] MEDS: ASCORBIC ACID 500 MG TAB PO SCH ×2 (09:17→17:18)
[2019-10-24] MEDS: ZINC SULFATE 220 MG CAP PO SCH (09:17)
[2019-10-24] MEDS: CARVEDILOL 12.5 MG TAB PO SCH ×2 (09:17→17:18)
--- NOTE | 2019-10-24 11:21 | NUR ---
PATIENT ASSISTED TO THE RESTROOM AND BACK TO BED. CALL LIGHT AT REACH.
--- NOTE | 2019-10-24 12:13 | Progress Note ---
DATE: Cardiology Progress Note SUBJECTIVE: The patient feels better, however, remains on oxygen. No chest pain, shortness of breath has improved. OBJECTIVE: VITAL SIGNS: Temperature is 98.8, heart rate 66, respiratory rate 20, blood pressure is 162/75, ox saturation 98% on 6 L nasal cannula. GENERAL: Well appearing, no apparent distress. CARDIOVASCULAR: Regular rate and rhythm. LUNGS: Decreased breath sounds at bases. ABDOMEN: Soft, nontender, nondistended. NEUROLOGIC: No focal deficits noted. CARDIOVASCULAR MEDICATIONS: Reviewed. LABORATORY DATA: Reviewed. Echocardiogram shows preserved left ventricular systolic function with impaired relaxation with no significant valvular abnormalities. IMPRESSION: 1. Acute on chronic diastolic congestive heart failure. 2. Community acquired pneumonia. 3. Hypertension. 4. Hyperlipidemia. 5. Respiratory failure with hypoxia. RECOMMENDATIONS: Can change to intermittent diuresis. Wean oxygen therapy per primary team. Continue antibiotics. If the patient is able to be safely weaned off oxygen and stable on intermittent diuretics she may be discharged from a cardiovascular standpoint with outpatient followup with Dr. Duncan. Richy Anguiano DO BM/MODL /[id number]
[2019-10-24] MEDS: CEFTRIAXONE SOD 1 GM/NS 50 ML 50 ML IV SCH (12:17)
[2019-10-24] MEDS: AZITHROMYCIN 500MG/NS 250 ML 250 ML IV SCH (13:01)
[2019-10-24] MEDS: FUROSEMIDE INJ 100 MG in SODIUM CHLORIDE 0.9% 100 ML 90 ML IV SCH (15:30)
--- NOTE | 2019-10-24 15:45 | NUR ---
MD IN TO SEE PATIENT, ORDER RECEIVED TO WEAN PATIENT OFF OXYGEN. OXYGEN AT 3L AT THIS TIME WITH O2 SAT AT 95%. WILL CONTINUE TO MONITOR.
[2019-10-24] MEDS: ENOXAPARIN SOD INJ 40 MG/0.4 ML SYR SC SCH (16:00)
--- NOTE | 2019-10-24 16:09 | Progress Note ---
DATE: Medicine Progress Note. SUBJECTIVE: The patient reportedly is doing much better, but she desats when we removed the oxygen. I would like to test her and ambulate her to see if she needs home O2. She continues to be on a Lasix drip. PHYSICAL EXAMINATION: VITAL SIGNS: Temperature is 98.6, pulse is 66, respiratory rate is 22, blood pressure 163/64, pulse ox of 100%. She is on 2 L nasal cannula. GENERAL: Not in acute distress. Alert and oriented x3. Cooperative on examination. HEENT: Head; normocephalic, atraumatic. Eyes; pupils are equal, round, and reactive to light bilaterally. Extraocular movements intact bilaterally. Throat; no evidence of erythema or exudates in the posterior pharynx. Has poor dentition. NECK: Supple. Good range of motion. PULMONARY: Clear to auscultation bilaterally. No wheezing, no rales, no rhonchi, no crackles appreciated. CARDIOVASCULAR: Positive S1 and S2. No murmurs, rubs, or gallops appreciated. ABDOMEN: Soft, nondistended, and nontender to palpation. Bowel sounds present. MUSCULOSKELETAL: Strength is 5/5 throughout. No evidence of any muscle deficits on examination. SKIN: Intact. Warm to touch. Good cap refill. PSYCHIATRIC: Normal affect and mood. EXTREMITIES: No edema. Good range of motion throughout. LABORATORY DATA: White count 8.9, hemoglobin 12, hematocrit 35, platelets of 238. Sodium 140, potassium 3.6, chloride 100, bicarb 28, anion gap of 15, BUN 36, creatinine 1.31, glucose is 118, calcium is 9.7. Coronavirus not detected. MICROBIOLOGY: Blood cultures no growth. IMAGING STUDIES: None new. IMPRESSION: 1. Acute respiratory distress secondary to pulmonary edema. 2. Acute exacerbation of congestive heart failure with systolic dysfunction. 3. Coronavirus-19 pneumonia, ruled out. 4. Community-acquired pneumonia. PLAN: At this time, the patient is reportedly breathing much better, but the nursing staff needs to wean her off the oxygen. We are going to evaluate her on ambulation even at rest and if she needs home O2, we will arrange. She did have a CTA of the chest that showed no evidence of pulmonary embolism. She is on antibiotics. Cardiology recommendations noted and they will stop the Lasix drip and put on oral diuretics, on Bumex. We will continue with same plan of care. Monitor closely. Get morning labs. Chest x-ray and also adjust the patient's antihypertensive medications. MD JONELLE Aldrich/UNAL /[id number]
[2019-10-24] MEDS: AMLODIPINE BESYLATE 10 MG TAB PO SCH (16:40)
--- NOTE | 2019-10-24 16:54 | NUR ---
PHYSICAL EXAMINATION: VITAL SIGNS: Temperature is 98.6, pulse is 66, respiratory rate is 22, blood pressure 163/64, pulse ox of 100%. She is on 2 L nasal cannula. GENERAL: Not in acute distress. Alert and oriented x3. Cooperative on examination. HEENT: Head; normocephalic, atraumatic. Eyes; pupils are equal, round, and reactive to light bilaterally. Extraocular movements intact bilaterally. Throat; no evidence of erythema or exudates in the posterior pharynx. Has poor dentition. NECK: Supple. Good range of motion. PULMONARY: Clear to auscultation bilaterally. No wheezing, no rales, no rhonchi, no crackles appreciated. CARDIOVASCULAR: Positive S1 and S2. No murmurs, rubs, or gallops appreciated. ABDOMEN: Soft, nondistended, and nontender to palpation. Bowel sounds present. MUSCULOSKELETAL: Strength is 5/5 throughout. No evidence of any muscle deficits on examination. SKIN: Intact. Warm to touch. Good cap refill. PSYCHIATRIC: Normal affect and mood. EXTREMITIES: No edema. Good range of motion throughout. LABORATORY DATA: White count 8.9, hemoglobin 12, hematocrit 35, platelets of 238. Sodium 140, potassium 3.6, chloride 100, bicarb 28, anion gap of 15, BUN 36, creatinine 1.31, glucose is 118, calcium is 9.7. Coronavirus not detected. [id number]
--- NOTE | 2019-10-24 18:35 | Progress Note ---
DATE: SUBJECTIVE: Ms. Moore is doing well, overall improving. PHYSICAL EXAMINATION: GENERAL: Currently alert, oriented. VITAL SIGNS: Stable, afebrile. HEENT: She is not icteric. NECK: Supple. CHEST: Clear. HEART: S1, S2. ABDOMEN: Soft. IMPRESSION: Respiratory failure, pulmonary edema, improving congestive heart failure, community-acquired pneumonia, stable from Infectious Disease point of view to be discharged if fit and if finished 8 days of antibiotic. MD CODI Unger/MODL /[id number]
[2019-10-25] VITALS (9 sets, daily range): BP systolic 153–176; BP diastolic 54–65
[2019-10-25 05:33] LABS: BASOPHILS % 0.2 % (0.0-1.0); EOSINOPHILS # (AUTO) 0.1 (0.0-0.4); EOSINOPHILS % 0.8 % (0.0-6.0); HEMATOCRIT 39.4 % (34.2-44.1); HEMOGLOBIN 13.7 g/dL (12.0-16.0); LYMPHOCYTES # (AUTO) 1.8 (1.0-3.2); LYMPHOCYTES % 13.9 % (18.0-39.1); MEAN CORPUSCULAR HEMOGLOBIN 28.8 pg (28-32); MEAN CORPUSCULAR HGB CONC 34.8 g/dL (31-35); MEAN CORPUSCULAR VOLUME 82.8 fL (81-99); MONOCYTES % 7.8 % (4.4-11.3); NEUTROPHILS # (AUTO) 9.9 (2.1-6.9); NEUTROPHILS % 76.6 % (38.7-80.0); PLATELET COUNT 293 x10e3/uL (140-360); RED BLOOD COUNT 4.76 x10e6/uL (3.6-5.1); RED CELL DISTRIBUTION WIDTH 12.7 % (11.7-14.4)
[2019-10-25 06:18] LABS: ANION GAP 14.5 mmol/L (8-16); CALCIUM 9.2 mg/dL (8.4-10.2); CREATININE, SERUM 1.36 mg/dL (0.57-1.11); POTASSIUM 3.5 mmol/L (3.5-5.1)
--- NOTE | 2019-10-25 06:58 | Diagnostic Imaging Report ---
EXAMINATION: CHEST SINGLE (PORTABLE) INDICATION: Shortness of breath. COMPARISON: 10/21/2019. FINDINGS: TUBES and LINES: None. LUNGS: Interval decrease in previously present bilateral patchy airspace disease. Prominence of the pulmonary vasculature and diffuse haziness of the lungs remain. Left basilar atelectasis versus consolidation. PLEURA: Small pleural effusions. No pneumothorax HEART AND MEDIASTINUM: The cardiomediastinal silhouette is obscured. BONES AND SOFT TISSUES: No acute osseous lesion. Soft tissues are unremarkable. UPPER ABDOMEN: No free air under the diaphragm. IMPRESSION: Interval decrease in previously present bilateral patchy airspace disease. Prominence of the pulmonary vasculature and diffuse haziness of the lungs remain. Follow-up to resolution. Signed by: Dr. Laura Morton M.D. on 10/25/2019 6:54 AM
--- NOTE | 2019-10-25 07:06 | NUR ---
report given to day nurse.
--- NOTE | 2019-10-25 07:31 | NUR ---
PATIENT IN BED TALKING ON THE PHONE, NO DISTRESS NOTED. BED IN LOWER POSITION, CALL LIGHT AT REACH.
[2019-10-25] MEDS: PANTOPRAZOLE SOD 40 MG TABEC PO SCH ×2 (08:00→17:37)
[2019-10-25] MEDS: AMLODIPINE BESYLATE 10 MG TAB PO SCH (09:21)
[2019-10-25] MEDS: ZINC SULFATE 220 MG CAP PO SCH (09:21)
[2019-10-25] MEDS: CARVEDILOL 12.5 MG TAB PO SCH (09:21)
[2019-10-25] MEDS: ASCORBIC ACID 500 MG TAB PO SCH ×2 (09:21→17:37)
--- NOTE | 2019-10-25 11:06 | NUR ---
PATIENT IN BED TALKING ON THE PHONE, NO DISTRESS NOTED. BED IN LOWER POSITION, CALL LIGHT AT REACH.
[2019-10-25] MEDS: CEFTRIAXONE SOD 1 GM/NS 50 ML 50 ML IV SCH (12:12)
--- NOTE | 2019-10-25 12:36 | NUR ---
Nutrition Screen Note RD Recommendation for Physician: - Continue diet as ordered Plan of Care: RD following, monitoring for tolerance and adequacy Nutrition reason for involvement: LOS Primary Diagnose(s): PNA, CHF, pulmonary edema PMH: Hypertension and morbidly obese Ht: 65in Wt: 140lb BMI: 23.3kg/m2 IBW: 125lb +/- 10% RD Assessment: (10/24) Chart reviewed. Labs and meds reviewed. 84yo F, who was admitted for PNA and pulmonary edema. Visited pt in the room. Pt reported great appetite with 75-100% recorded meal intake. No complains of nausea or vomiting. Pt denied any chewing or swallowing difficulty. Weight has been stable. LBM 10/23. Will continue to follow. Current Diet: Cardiac Malnutrition Evaluation (10/25/19) The patient does not meet criteria for a specified degree of malnutrition at this time. Will re-evaluate at follow-up as appropriate. Diet Education Needs Assessment: Diet education not indicated. Nutrition Care Level: low Signed: Carolee Cabral, MS, RD, LD
[2019-10-25] MEDS: AZITHROMYCIN 500MG/NS 250 ML 250 ML IV SCH (13:00)
--- NOTE | 2019-10-25 13:42 | Progress Note ---
DATE: Cardiology Progress Note SUBJECTIVE: The patient is feeling better. Still on nasal cannula. OBJECTIVE: VITAL SIGNS: Temperature is 98.6, heart rate is 55, respirations are 20, blood pressure is 153/63, and ox saturation 98% on 1 L nasal cannula. GENERAL: Well appearing, no apparent distress. CARDIOVASCULAR: Regular rate and rhythm. LUNGS: Clear to auscultation. ABDOMEN: Soft, nontender, nondistended. EXTREMITIES: No edema. CARDIOVASCULAR MEDICATIONS: Reviewed. LABORATORY DATA: Reviewed. Creatinine is 1.36. IMAGING DATA: Chest x-ray shows interval decrease in previously present bilateral patchy airspace disease. IMPRESSION: 1. Respiratory failure with hypoxia. 2. Acute on chronic diastolic heart failure. 3. Community-acquired pneumonia. 4. Hypertension. 5. Hyperlipidemia. 6. Bradycardia. RECOMMENDATION: Can change to oral diuretics today. Start Lasix 40 mg p.o. b.i.d. Wean oxygen as tolerated. Continue all current cardiovascular medications. May consider decreasing carvedilol given bradycardia. Richy Anguiano DO BM/MODL /[id number]
[2019-10-25] MEDS: SIMETHICONE 80 MG CHEW PO PRN (13:50)
--- NOTE | 2019-10-25 14:08 | Progress Note ---
DATE: SUBJECTIVE: Ms. Moore is stable. There is no new complaint. REVIEW OF SYSTEMS: There is nothing new. PHYSICAL EXAMINATION: GENERAL: She is currently alert, oriented. VITAL SIGNS: Stable, afebrile. HEENT: She is not icteric. NECK: Supple. CHEST: Clear. HEART: S1, S2. ABDOMEN: Soft. MEDICATIONS: Reviewed. LABORATORY DATA: Reviewed. IMPRESSION AND PLAN: Respiratory failure, pneumonia, community acquired, stable from Infectious Disease point of view, congestive heart failure. Discussed with cardiology. Discussed with medical team. Discharge planning per others. MD CODI Unger/SANDIE /[id number]
[2019-10-25 14:24] LABS: BASOPHILS % 0.1 % (0.0-1.0); EOSINOPHILS # (AUTO) 0.2 (0.0-0.4); EOSINOPHILS % 2.2 % (0.0-6.0); HEMATOCRIT 38.4 % (34.2-44.1); HEMOGLOBIN 13.2 g/dL (12.0-16.0); LYMPHOCYTES # (AUTO) 1.9 (1.0-3.2); LYMPHOCYTES % 20.8 % (18.0-39.1); MEAN CORPUSCULAR HEMOGLOBIN 29.3 pg (28-32); MEAN CORPUSCULAR HGB CONC 34.4 g/dL (31-35); MEAN CORPUSCULAR VOLUME 85.1 fL (81-99); MONOCYTES # (AUTO) 1.2 (0.2-0.8); MONOCYTES % 12.6 % (4.4-11.3); NEUTROPHILS # (AUTO) 5.8 (2.1-6.9); NEUTROPHILS % 63.6 % (38.7-80.0); PLATELET COUNT 285 x10e3/uL (140-360); RED BLOOD COUNT 4.51 x10e6/uL (3.6-5.1); RED CELL DISTRIBUTION WIDTH 12.6 % (11.7-14.4)
[2019-10-25] MEDS: ENOXAPARIN SOD INJ 40 MG/0.4 ML SYR SC SCH (15:11)
--- NOTE | 2019-10-25 15:26 | NUR ---
PATIENT C/O DYSPHAGIA, NOTIFIED, NEW ORDER RECEIVED.
[2019-10-25] MEDS ORDERED: CARVEDILOL 12.5 MG TAB PO SCH (17:00)
[2019-10-25] MEDS ORDERED: POTASSIUM CHLORIDE 20 MEQ TAB CR PO NR (17:00)
[2019-10-25] MEDS: BUMETANIDE INJ 0.25MG/ML 4ML VIAL IV SCH ×2 (17:15→22:00)
[2019-10-25] MEDS: CARVEDILOL 3.125 MG TAB PO SCH (17:37)
[2019-10-25] MEDS ORDERED: FUROSEMIDE 40 MG TAB PO SCH (18:00)
--- NOTE | 2019-10-25 19:54 | Progress Note ---
DATE: 10/25/2019 Medicine Progress Note. SUBJECTIVE: The patient reports that she has seems to be short of breath despite she was doing well yesterday. She also reports that she is having difficulty with her food despite she was eating well throughout this hospital course. Discussed plan of care with nursing staff. PHYSICAL EXAMINATION: VITAL SIGNS: Temperature is 98.6, pulse 55, respiratory rate is 20, blood pressure pulse ox 98% on room air. LABORATORY FINDINGS: Show white count 9.1, hemoglobin 13, hematocrit 38, platelets of 285,000. Chemistry; sodium 136, potassium 3.5, chloride 100, bicarb 25, anion gap of 14, BUN is 36, creatinine 1.36, glucose is 161, calcium is 9.2. Microbiology, all negative cultures. IMAGING STUDIES: Chest x-ray interval decrease in previously present bilateral patchy airspace disease. Prominent pulmonary vasculature and diffuse haziness of the lungs remain. PHYSICAL EXAMINATION: GENERAL: Not in acute distress, alert and oriented x3, cooperative on examination. HEENT: Head is normocephalic and atraumatic. Eyes; pupils are equal, round, and reactive to light bilaterally. Extraocular movements are intact bilaterally. NECK: Supple. Good range of motion throughout. Extraocular movements are intact bilaterally. Throat, no evidence of any erythema or exudates in the posterior pharynx. Has poor dentition. PULMONARY: no rales no rhonchi, no crackles appreciated. CARDIOVASCULAR: Positive S1, S2. No murmurs, rubs, or gallops. ABDOMEN: Soft, nondistended, nontender to palpation. Bowel sounds present. MUSCULOSKELETAL: Strength is 5/5 throughout. SKIN: Intact. Warm to touch. Good cap refill. PSYCHIATRIC: Normal affect and mood. EXTREMITIES: No edema. Good range of motion throughout. IMPRESSION: 1. Acute respiratory distress secondary to pulmonary edema. 2. Acute exacerbation of congestive heart failure with systolic dysfunction. 3. Coronavirus 19 ruled out. 4. Community-acquired pneumonia. 5. Reportedly states having some dysphagia. PLAN: At this time from a pulmonary aspects she is doing much better, she is weaned off oxygen. Continue with antibiotics for now. She reports having some dysphagia, which I did consult with GI. It seems to be that the patient is having more acid reflux. She is going to be on Carafate and Protonix b.i.d. Her vitals are stable. We decreased her Coreg due to much lower heart rate. We will get a.m. labs and chest x-ray in the morning. Continue with Lovenox for DVT prophylaxis. MD JONELLE Aldrich/SANDIE /[id number]
--- NOTE | 2019-10-25 20:20 | NUR ---
RECEIVED PT IN BED AOX3 ,RESPIRATION AREEVEN AND UNLABORED ,CALL LIGHT WITH IN REACH,CONTINUE TO MONITOR
[2019-10-25] MEDS: SUCRALFATE 1 GM/10 ML SUSP PO SCH (21:00)
[2019-10-26] VITALS (9 sets, daily range): BP systolic 152–179; BP diastolic 54–66
[2019-10-26] MEDS: BUMETANIDE INJ 0.25MG/ML 4ML VIAL IV SCH (05:56)
--- NOTE | 2019-10-26 06:04 | NUR ---
PT IS NPO FOR EGD ,NO ACUTE DISTRESS NOTED ,CALL LIGHT WITH IN REACH ,CONTINUE TO MONITOR
[2019-10-26 06:40] LABS: BASOPHILS % 0.2 % (0.0-1.0); EOSINOPHILS # (AUTO) 0.3 (0.0-0.4); EOSINOPHILS % 3.2 % (0.0-6.0); HEMATOCRIT 44.7 % (34.2-44.1); HEMOGLOBIN 15.1 g/dL (12.0-16.0); LYMPHOCYTES # (AUTO) 2.6 (1.0-3.2); LYMPHOCYTES % 27.9 % (18.0-39.1); MEAN CORPUSCULAR HEMOGLOBIN 28.8 pg (28-32); MEAN CORPUSCULAR HGB CONC 33.8 g/dL (31-35); MEAN CORPUSCULAR VOLUME 85.1 fL (81-99); MONOCYTES # (AUTO) 1.2 (0.2-0.8); NEUTROPHILS # (AUTO) 5.2 (2.1-6.9); NEUTROPHILS % 55.1 % (38.7-80.0); PLATELET COUNT 342 x10e3/uL (140-360); RED BLOOD COUNT 5.25 x10e6/uL (3.6-5.1); RED CELL DISTRIBUTION WIDTH 12.6 % (11.7-14.4)
--- NOTE | 2019-10-26 07:00 | NUR ---
RECEIVED BEDSIDE SHIFT REPORT FROM OFF GOING NIGHT NURSE. PATIENT IN STABLE CONDITION, NO S/S OF DISTRESS NOTED. BED ALARM APPLIED. BED IN LOWEST POSITION AND LOCKED, SIDE RAILS X 2. CALL LIGHT WITHIN REACH.
--- NOTE | 2019-10-26 07:02 | NUR ---
BEDSIDE REPORT GIVEN TO THE ONCOMING NURSE
--- NOTE | 2019-10-26 07:12 | Diagnostic Imaging Report ---
EXAMINATION: CHEST SINGLE (PORTABLE) INDICATION: Acute pneumonia. COMPARISON: 10/25/2019. FINDINGS: TUBES and LINES: None. LUNGS: Perihilar, peribronchial thickening. The lungs are better aerated, with decreased in bilateral patchy airspace disease. PLEURA: Small pleural effusions. No pneumothorax HEART AND MEDIASTINUM: The cardiomediastinal silhouette is unremarkable. Calcifications of the aortic arch. BONES AND SOFT TISSUES: No acute osseous lesion. Soft tissues are unremarkable. UPPER ABDOMEN: No free air under the diaphragm. IMPRESSION: Improved aeration, with further decrease in bilateral patchy airspace disease. Signed by: Dr. Laura Morton M.D. on 10/26/2019 7:09 AM
[2019-10-26 07:22] LABS: ANION GAP 14.7 mmol/L (8-16); CALCIUM 9.7 mg/dL (8.4-10.2); CREATININE, SERUM 1.52 mg/dL (0.57-1.11); POTASSIUM 3.7 mmol/L (3.5-5.1)
--- NOTE | 2019-10-26 08:01 | Emergency Department Note ---
History of Present Illnes History of Present Illness Chief Complaint: General Medicine Complaints History of Present Illness This is a 84 year old female with a 24-hour history of shortness of breath and diarrhea for 4-6 hours. She has had no cough. She's had a subjective fever. She's had chills. She's had general malaise and body aches. She has had no known COVID contacts and no known sick contacts. She denies any dysuria. She denies rash. No headache. No sinus congestion. No CP, but has chest congestion. Historian: Patient, Family Member Arrival Mode: Car History limited by: language barrier Inventory Management Specialist Required: Yes Onset (how long ago): day(s) Onset quality: gradual Duration (how long): day(s) Timing of current episode: constant Progression: worsening Context: Reports recent illness Relieving factors: none Exacerbating factors: none Past Medical/Family History Physician Review I have reviewed the patient's past medical and family history. Any updates have been documented here. Past Medical History Recent Fever: Yes Clinical Suspicion of Infectio: No New/Unexplained Change in Ment: No Past Medical History: Hypertension Past Surgical History: None Social History Smoking Cessation: Never Smoker Alcohol Use: None Any Illegal Drug Use: No Physically hurt or threatened: No Other Any Pre-Existing Lines (PICC,: No Review of Systems Review of Systems Constitutional: Reports chills, Reports fever, Reports malaise EENTM: Denies ear discharge, Denies nose congestion, Denies throat pain, Denies mouth pain Cardiovascular: Denies chest pain, Denies palpitations Respiratory: Reports chest congestion, Reports dyspnea (no orthopnea no PND), Reports dyspnea on exertion; Denies cough, Denies hemoptysis, Denies excessive phlegm production, Denies pain on inspiration, Denies pain with cough Gastrointestinal: Reports diarrhea Genitourinary: Reports no symptoms Musculoskeletal: Reports muscle pain Integumentary: Denies rash Neurological: Reports no symptoms Endocrine: Denies intolerance to cold, Denies intolerance to heat Hematological/Lymphatic: Denies easy bleeding, Denies easy bruising Physical Exam Related Data Allergies: Coded Allergies: No Known Allergies (Unverified , 05/18/19) Triage Vital Signs Vital Signs Date Time Temp Pulse Resp B/P (MAP) Pulse Ox O2 Delivery O2 Flow Rate FiO2 10/18/19 21:50 100.7 71 22 149/90 77 Room Air 10/18/19 21:55 3.0 Physical Exam CONSTITUTIONAL Constitutional: Present well-developed, Present well-nourished HENT HENT: Present normocephalic, Present atraumatic, Present oropharynx clear/moist, Present nose normal HENT L/R: Present left TM normal, Present right TM normal, Present left canal normal, Present right canal normal, Present left ext ear normal, Present right ext ear normal EYES NECK Neck: Present ROM normal (neck is supple) PULMONARY Pulmonary: Present breath sounds normal, Present other (handle secretions completes full sentences. Tachypneic without oxygen, tachypnea resolves with O2.); Absent chest tenderness CARDIOVASCULAR Cardiovascular: Present regular rhythm GASTROINTESTINAL Abdominal: Present soft GENITOURINARY SKIN Skin: Present warm MUSCULOSKELETAL Musculoskeletal: Present ROM normal NEUROLOGICAL Neurological: Present alert, Present oriented x 3, Present no gross motor or sensory deficits PSYCHOLOGICAL Psychological: Present mood/affect normal, Present judgement normal Results Laboratory Laboratory comments White blood cell count is 11.0 11.5, hematocrit 35.1, with a platelet count of 188. Glucose is 165, BUN 36, cr 1.5, sodium 133, k 3.8. Trop <0.05, ddimer 2910, Imaging Imaging Comments Examination: Single AP view of the chest. COMPARISON: None. INDICATION: Chills, fever, diarrhea for one day IMPRESSION: 1. Lines and Tubes: None 2. Lungs are hypoinflated. Diffuse bilateral interstitial and alveolar opacities extending from the kevon. Likely small left pleural effusion. This may represent CHF with interstitial and alveolar pulmonary edema, however, multifocal pneumonia, including viral, could be considered in the appropriate clinical setting. 3. Cardiac silhouette is obscured. Marked central pulmonary vascular congestion. Atherosclerotic calcification of the aortic arch. 4. No acute bony abnormalities. Generalized osteopenia. Signed by: Dr. Max Gordillo M.D. on 10/18/2019 10:58 PM Dictated By: MAX GORDILLO MD 57 Transcribed By: ANOOP on 10/18/192257 Procedures 12 Lead ECG Interpretation ECG Interpretation : ECG: ECG 1 Date: Oct 18, 2019 Prior ECG tracings: reviewed Rhythm: sinus rhythm Rate: normal BPM: 61 QRS axis: normal ST segments normal: Yes T waves flattening: all Clinical Impression: abnormal ECG Assessment & Plan Medical Decision Making MDM Pt with SOB and hypoxia responding to O2 via NC. Hx of diarrhea, but on further questioning stool just softer than normal. CXR and symptoms concerning for COVID 19. Will admit and perform CT @ hospital after transfer in [facility] CT scanner. Rocephin and Zithromax and decadron ordered in ED. Assessment & Plan Final Impression: (1) Person under investigation for COVID-19 (2) Hypoxia (3) Acute pneumonia Last Vital Signs Date Time Temp Pulse Resp B/P (MAP) Pulse Ox O2 Delivery O2 Flow Rate FiO2 10/18/19 22:39 64 20 141/66 96 10/18/19 21:55 3.0 10/18/19 21:50 100.7 Room Air Home Meds Reported Medications Potassium Chloride (POTASSIUM CHLORIDE) 20 Meq Tab.er.prt, 20 MEQ PO DAILY 10/19/19 Furosemide (LASIX) 20 Mg Tablet, 20 MG PO DAILY, #30 TAB 10/19/19 Carvedilol (CARVEDILOL) 12.5 Mg Tablet, 12.5 MG PO BID, #60 TAB 10/19/19 Discontinued Scripts Simethicone (Mylanta Gas Minis) 42 Mg Tab.chew, 42 MG PE PEG TID for gas, #30 Prov:JANEL WRIGHT MD 05/18/19 Amoxicillin (AMOXICILLIN) 250 Mg Capsule, 7 MG PO TID for 7 Days, #30 CAP Prov:JANEL WRIGHT MD 05/18/19 Mometasone Furoate (NASONEX) 17 Gm [place], 2 PUMP NA DAILY for 30 Days THERAPEUTICALLY SUBSTITUTED WITH FLONASE (FLUTICASONE) Prov:JANEL WRIGHT MD 05/18/19 Medications in the ED Acetaminophen 975 mg ONCE ONCE PO ; Start 10/18/19 at 22:45; Stop 10/18/19 at 22:46; Status UNV JV SANDOVAL MD Oct 18, 2019 23:35
[2019-10-26] MEDS: PANTOPRAZOLE SOD 40 MG TABEC PO SCH ×2 (08:24→17:29)
[2019-10-26] MEDS: SUCRALFATE 1 GM/10 ML SUSP PO SCH ×4 (08:24→20:48)
[2019-10-26] MEDS: ZINC SULFATE 220 MG CAP PO SCH (08:25)
[2019-10-26] MEDS: ASCORBIC ACID 500 MG TAB PO SCH ×2 (08:25→17:30)
[2019-10-26] MEDS: CARVEDILOL 3.125 MG TAB PO SCH ×2 (08:25→17:29)
[2019-10-26] MEDS: AMLODIPINE BESYLATE 10 MG TAB PO SCH (08:32)
[2019-10-26] MEDS: CEFTRIAXONE SOD 1 GM/NS 50 ML 50 ML IV SCH (12:06)
--- NOTE | 2019-10-26 12:23 | Progress Note ---
DATE: Cardiology Progress Note SUBJECTIVE: The patient found sleeping, feeling better off nasal cannula. OBJECTIVE: VITAL SIGNS: Temperature is 98.9, heart rate is 55, respirations are 21, blood pressure is 158/55, oxygen saturation 97% on room air. GENERAL: Well appearing, sleeping comfortably. HEENT: Head is normocephalic and atraumatic. CARDIOVASCULAR: Bradycardic. Regular rhythm. LUNGS: Diminished breath sounds at bases. ABDOMEN: Soft, nontender, nondistended. EXTREMITIES: Trace edema. CARDIOVASCULAR MEDICATIONS: Reviewed. LABORATORY DATA: Reviewed. IMPRESSION: 1. Respiratory failure with hypoxia, resolved. 2. Acute on chronic diastolic heart failure. 3. Community-acquired pneumonia. 4. Hypertension. 5. Hyperlipidemia. 6. Bradycardia. RECOMMENDATION: Her Coreg was decreased yesterday. If she remains bradycardic, can discontinue her Coreg. Continue all the current cardiovascular medications. Her Lasix was discontinued for some unknown reason. Would recommend starting oral diuretics. We will continue to follow along. Richy Anguiano DO BM/MODL /[id number]
[2019-10-26] MEDS: AZITHROMYCIN 500MG/NS 250 ML 250 ML IV SCH (13:14)
--- NOTE | 2019-10-26 14:53 | NUR ---
BJECTIVE: VITAL SIGNS: Temperature is 98.9, heart rate is 55, respirations are 21, blood pressure is 158/55, oxygen saturation 97% on room air. GENERAL: Well appearing, sleeping comfortably. HEENT: Head is normocephalic and atraumatic. CARDIOVASCULAR: Bradycardic. Regular rhythm. LUNGS: Diminished breath sounds at bases. ABDOMEN: Soft, nontender, nondistended. EXTREMITIES: Trace edema. CARDIOVASCULAR MEDICATIONS: Reviewed. LABORATORY DATA: Reviewed. [id number]
--- NOTE | 2019-10-26 17:49 | Progress Note ---
DATE: SUBJECTIVE: Ms. Moore is doing well. There is no new complaint. REVIEW OF SYSTEMS: HEENT: Negative. PULMONARY: Negative. CARDIAC: Negative. PHYSICAL EXAMINATION: GENERAL: She is currently alert, oriented. VITAL SIGNS: Stable, afebrile. HEENT: She is not icteric. NECK: Supple. CHEST: Clear. HEART: S1-S2. No murmurs. ABDOMEN: Soft. Bowel sounds present. EXTREMITIES: No edema. SKIN: No rash. IMPRESSION AND PLAN: 1. Respiratory failure, resolved. 2. Acute on chronic congestive heart failure. 3. Community-acquired pneumonia, resolved. Off antibiotic if stable from Infectious Disease point of view. Discharge plan is per Internal Medicine and Cardiology. MD CODI Unger/UNAL /[id number]
--- NOTE | 2019-10-26 19:00 | NUR ---
Resumed care of patient. Patient awake and sitting up in bed, respirations even and unlabored, vital signs stable from baseline on room air. Bed locked and in lowest position, side rails upx3, call light placed within reach. Patient instructed to call for assistance if needed, verbalized understanding. All safety measures in place.
--- NOTE | 2019-10-26 19:18 | NUR ---
COMPLETED BEDSIDE SHIFT REPORT AND ROUNDING WITH ON COMING NIGHT NURSE. PATIENT IN STABLE CONDITION, NO S/S OF DISTRESS NOTED. BED ALARM APPLIED. BED IN LOWEST POSITION AND LOCKED, NON-SKID SOCKS APPLIED, SIDE RAILS X 2. CALL LIGHT WITHIN REACH.
--- NOTE | 2019-10-26 19:19 | Operative Report ---
DATE OF PROCEDURE: 10/26/2019 SURGEON: Fausto Parsons MD PROCEDURE: EGD with biopsies and esophageal dilatation. INDICATIONS FOR EGD: Dysphagia to solids. MEDICATIONS: The patient was done under MAC, please see anesthesiologist's note. PROCEDURE IN DETAIL: With the patient in the left lateral decubitus position, a flexible fiberoptic Olympus gastroscope was introduced into the esophagus under direct visualization without any difficulty. There was some patchy erythema noted in distal esophagus. Esophagus was then dilated to size 52-[place] Ernst. The scope was then advanced with ease into the stomach traversing a small sliding hiatal hernia. Mucosa overlying the antrum and the body revealed some patchy erythema and [id number] edema, and biopsies were obtained and sent to stain for H. pylori. Pylorus was of normal contour and shape, was intubated with ease and the scope was advanced all the way to the second portion of the duodenum. The scope was then withdrawn slowly, mucosa overlying the proximal second portion and the duodenal bulb appeared to be within normal limits. The scope was then withdrawn back into the stomach and retroflexed, mucosa overlying the fundus and the cardia appeared to be within normal limits. The scope was then straightened out, it was subsequently withdrawn, and the patient tolerated the procedure well. IMPRESSION: 1. Distal esophagitis, mild. 2. Esophagus dilated to size 52-[place] Ernst. 3. Small sliding hiatal hernia. 4. Gastritis, biopsied, biopsies sent to stain for Helicobacter pylori. PLAN: Follow up histology. Continue PPI therapy. Fausto Parsons MD [facility]/SANDIE /[id number] cc: Orlin Katz MD
[2019-10-26] MEDS ORDERED: PROPOFOL IV EMULSION 10 MG/ML 20 ML VIAL ONE (21:25)
[2019-10-27] VITALS (8 sets, daily range): BP systolic 131–174; BP diastolic 58–101
--- NOTE | 2019-10-27 00:26 | NUR ---
Dr. Miranda Parsons on unit. No new orders received at this time.
[2019-10-27] MEDS: AMLODIPINE BESYLATE 10 MG TAB PO SCH (09:17)
[2019-10-27] MEDS: PANTOPRAZOLE SOD 40 MG TABEC PO SCH ×2 (09:17→16:05)
[2019-10-27] MEDS: SUCRALFATE 1 GM/10 ML SUSP PO SCH ×4 (09:17→21:00)
[2019-10-27] MEDS: ASCORBIC ACID 500 MG TAB PO SCH ×2 (09:17→16:06)
[2019-10-27] MEDS: CARVEDILOL 3.125 MG TAB PO SCH ×2 (09:17→16:05)
[2019-10-27] MEDS: ZINC SULFATE 220 MG CAP PO SCH (09:18)
[2019-10-27] MEDS: CEFTRIAXONE SOD 1 GM/NS 50 ML 50 ML IV SCH (12:55)
--- NOTE | 2019-10-27 13:24 | Progress Note ---
DATE: Cardiology progress note SUBJECTIVE: The patient feels better, is eating and swallowing well. Denies any shortness of breath or chest pain. OBJECTIVE: VITAL SIGNS: Temperature is 98.6, heart rate is 69, respirations are 18, blood pressure is 164/61, and ox saturation 99% on room air. GENERAL: Well appearing, well built, no apparent distress. CARDIOVASCULAR: Regular rate and rhythm. LUNGS: Clear to auscultation. ABDOMEN: Soft, nontender, nondistended. EXTREMITIES: Trace edema. LABORATORY DATA: Reviewed. CARDIOVASCULAR MEDICATIONS: Reviewed. IMPRESSION: 1. Respiratory failure with hypoxia, resolved. 2. Acute on chronic diastolic heart failure. 3. Community-acquired pneumonia. 4. Hypertension. 5. Hyperlipidemia. 6. Bradycardia. RECOMMENDATIONS: Continue current cardiovascular medications for heart rate and blood pressure control. Restart Lasix 40 mg daily. The patient is stable for discharge from a cardiovascular standpoint. Richy Anguiano DO BM/MODL /[id number]
[2019-10-27] MEDS: AZITHROMYCIN 500MG/NS 250 ML 250 ML IV SCH (13:50)
--- NOTE | 2019-10-27 15:42 | NUR ---
patient expressed to nurse that she wanted to be discharged home. Called Dr. Katz (who the patient is admitted under) to inform and he stated that it is not his patient and to call Dr. Charles. Called Dr. Charles and he stated that Dr. Katz agreed to see the patient, however, has not. Dr. Charles stated that he will be in to see the patient later tonight and will discharge her pending morning labs.
[2019-10-27 16:14] LABS: BASOPHILS % 0.4 % (0.0-1.0); EOSINOPHILS # (AUTO) 0.4 (0.0-0.4); EOSINOPHILS % 4.5 % (0.0-6.0); HEMATOCRIT 39.9 % (34.2-44.1); HEMOGLOBIN 13.6 g/dL (12.0-16.0); LYMPHOCYTES # (AUTO) 2.3 (1.0-3.2); LYMPHOCYTES % 26.6 % (18.0-39.1); MEAN CORPUSCULAR HEMOGLOBIN 28.6 pg (28-32); MEAN CORPUSCULAR HGB CONC 34.1 g/dL (31-35); MONOCYTES # (AUTO) 1.3 (0.2-0.8); NEUTROPHILS # (AUTO) 4.5 (2.1-6.9); NEUTROPHILS % 52.8 % (38.7-80.0); PLATELET COUNT 307 x10e3/uL (140-360); RED BLOOD COUNT 4.75 x10e6/uL (3.6-5.1); RED CELL DISTRIBUTION WIDTH 12.6 % (11.7-14.4)
[2019-10-27 16:32] LABS: ANION GAP 15.7 mmol/L (8-16); CALCIUM 8.8 mg/dL (8.4-10.2); CREATININE, SERUM 1.24 mg/dL (0.57-1.11); POTASSIUM 3.7 mmol/L (3.5-5.1)
--- NOTE | 2019-10-27 21:14 | NUR ---
PATIENT REFUSING MEDICATIONS AT THIS TIME. REFUSING IV SALINE FLUSH. DOES NOT WANT ANY MEDICATION AND WANTS TO GO HOME TODAY. EXPLAINED IT IS LATE AND WE NEED TO WAIT FOR MORNING LABS. MD CARSON STILL TO SEE PATIENT TONIGHT ACCORDING TO DAY SHIFT. SPOKE WITH FAMILY MEMBER WHO STATED SHE WOULD TRY TO EXPLAIN TO PATIENT REASON FOR STAYING OVERNIGHT. WILL CONTINUE TO MONITOR AND ATTEMPT TO KEEP PATIENT CALM.
--- NOTE | 2019-10-27 22:36 | Progress Note ---
DATE: SUBJECTIVE: The patient's breathing has improved. She is off oxygen. She has no cough. PHYSICAL EXAMINATION: VITAL SIGNS: The saturation is 100% and the blood pressure is 148/58. Pulse rate is 60. She is afebrile. HEENT: Shows no facial swelling or erythema. CARDIAC: Reveals regular rate and rhythm with normal S1 and S2. LUNGS: Auscultation of lungs reveals crackles at the bases. There is no wheezing. ABDOMEN: Soft, nontender. There is no rebound or guarding. EXTREMITIES: Shows no leg edema or calf tenderness. There is no cyanosis or clubbing. LABORATORY DATA: BUN to creatinine ratio is 28 to 1.24. Other electrolytes are within normal limits. CBC is within normal limits. RADIOGRAPHIC DATA: Chest x-ray shows improvement in bilateral infiltrates. IMPRESSION: 1. Acute respiratory failure that has resolved. 2. Fkmse-pt-ihidhrx systolic congestive heart failure. 3. Community-acquired pneumonia. 4. Chronic renal failure, stage 3. PLAN: 1. Continue current cardiac regimen. 2. Complete antibiotics. 3. Continue to monitor BUN and creatinine. Vega Sandy MD [facility]/MODL /[id number]
--- NOTE | 2019-10-27 22:50 | NUR ---
RECEIVED ORDERS TO DISCHARGE PATIENT. INFORMED PATIENT WHO CALLED FAMILY MEMBER. ATTEMPTED TO REMOVE R FA 22G IV, HOWEVER, PATIENT HAD ALREADY PULLED IT OUT. NO BLEEDING NOTED TO IV SITE. CATHETER FOUND IN TRASH, CATHETER TIP WAS INTACT.
[2019-10-27] MEDS ORDERED: CEFDINIR300 MG PO (22:51)
[2019-10-27] MEDS ORDERED: NORVASC10 MG PO (22:51)
[2019-10-27] MEDS ORDERED: PANTOPRAZOLE SO40 MG PO (22:52)
[2019-10-27] MEDS ORDERED: COREG3.125 MG PO (22:53)
[2019-10-27] MEDS ORDERED: LASIX40 MG PO (22:53)
--- NOTE | 2019-10-27 23:09 | NUR ---
PATIENT DISCHARGED AT THIS TIME. DISCHARGE PAPERWORK COMPLETED. FOLLOW UP WITH PCP IN 1 WEEKS, WITH GI DOCTOR IN 2 WEEKS. PRESCRIPTIONS GIVEN AND INITIALED BY PATIENT. INFO GIVEN ON HIATAL HERNIA, CHF, AND PNEUMONIA. ACTIVITY TOLERATED. HEART HEALTHY DIET. RETURN TO ED IF SYMPTOMS RETURN. PATIENT REFUSED FINAL SET OF VITALS. PATIENT STABLE, NO PAIN REPORTED. NO S&S OF DISTRESS. PATIENT ACCOMPANIED BY STAFF VIA WHEELCHAIR TO FAMILY MEMBER WAITING AT FRONT.
--- NOTE | 2019-10-28 03:11 | Discharge Summary ---
FINAL DISCHARGE DIAGNOSES: 1. Acute respiratory distress secondary to pulmonary edema-resolved. 2. Acute exacerbation of congestive heart failure with systolic dysfunction-resolved. 3. Coronavirus disease-19 ruled out. 4. Community-acquired pneumonia. 5. Status post esophagogastroduodenoscopy performed on 10/26/2019 that showed distal esophagitis, dilated esophagus, small sliding hiatal hernia, gastritis. CONSULTANTS: GI, Cardiology, Pulmonary, Infectious Disease. PHYSICAL EXAMINATION: VITAL SIGNS: Temperature is 98.4, pulse 65, respiratory rate 19, blood pressure 140/58, pulse ox 100% on room air. LABORATORY FINDINGS: White count was 8.4, hemoglobin 13, hematocrit 39, platelets of 307. Chemistry; sodium 137, potassium 3.7, chloride 100, bicarb 25, anion gap of 15, BUN is 28, creatinine is 1.28, calcium is 8.8. Troponins were negative. LFTs within normal range. Serology, coronavirus not detected. ABG shows pH 7.4, PCO2 of 35, bicarbonate of 22. Microbiology, blood cultures no growth. IMAGING STUDIES: Chest x-ray on admission 10/18/2019, shows some pleural effusion, possible underlying pneumonia. CTA of the chest shows no pulmonary embolism. Shows mild pulmonary edema. Some opacities noted. Chest x-ray on 10/26/2019 shows improved aerations with further decrease in bilateral patchy airspace disease. HOSPITAL COURSE: This is an 84-year-old female, came into the ED with underlying shortness of breath. The patient was admitted. ID and Pulmonary were consulted. Initial thought that the patient may have had coronavirus, but the PCR came back found to be negative. It was found that the patient likely was being treated for acute exacerbation of congestive heart failure. She does have underlying systolic dysfunction. Cardiology was consulted. The patient maintained on a Lasix drip with much improvement. She was initially on oxygen and she was weaned off to room air. She maintained on cardioprotective medications. She was also found to have community-acquired pneumonia, treated accordingly with antibiotics. She improved throughout the hospital course. During the hospital course, she complained of underlying dysphagia prompting GI consultation. The patient underwent EGD on 10/26/2019, in which she was found to have distal esophagitis, her esophagus was dilated, small hiatal hernia and gastritis which was biopsied. She was discharged on oral Protonix for her underlying gastritis. Her antihypertensive medications were adjusted accordingly. She was discharged on oral diuretics. She was also discharged on oral antibiotics. The patient was cleared for discharge by all consultants. On the day of discharge, vital signs were stable, labs reviewed and stable. The patient is seen and evaluated and examined thoroughly on the day of discharge, no other complaints. The patient verbalized understanding and agrees to plan of care to follow up accordingly as an outpatient with primary care physician in 1 week, GI in 2 weeks for biopsy results, Cardiology in 2 weeks' time. MEDICATIONS: See med reconciliation form. DISPOSITION: Home. CONDITION: Stable. DIET: Heart healthy. In the event of any worsening symptoms, the patient was advised to come back to the ED for further evaluation. Discharge summary took greater than 35 minutes. MD JONELLE Aldrich/SANDIE /[id number]
--- NOTE | 2019-10-28 08:58 | Progress Note ---
DATE: SUBJECTIVE: Ms. Moore is doing well. There is no new complaint. PHYSICAL EXAMINATION: GENERAL: Alert and oriented. VITAL SIGNS: Stable, afebrile. HEENT: She is not icteric. NECK: Supple. CHEST: Clear. HEART: S1 and S2. No murmur. ABDOMEN: Soft. Bowel sounds present. No tenderness. EXTREMITIES: No edema. SKIN: No rash. IMPRESSION: From Infectious Disease point of view, the patient is preparing to be discharged. Discussed with medical team. There is no change with condition, pneumonia, congestive heart failure. Stable to be discharged. MD CODI Unger/SANDIE /[id number]
[2019-10-28] MEDS ORDERED: FUROSEMIDE 40 MG TAB PO SCH (09:00)
== END 2019-10-27 23:11 | disposition home or self-care (01) | DRG 291 ==
LOC: FSED 22:22 → ERHOLD 23:52 → MED/SURG3 10-19 04:39
PROVIDERS: ADMIT Internal Medicine; ATTEND Internal Medicine
PROC: 0DB68ZX Excision of Stomach, Via Natural or Artificial Opening Endoscopic, Diagnostic (ICD-10-PCS; 2019-10-26)
PROC: 0DJ08ZZ Inspection of Upper Intestinal Tract, Via Natural or Artificial Opening Endoscopic (ICD-10-PCS; principal; 2019-10-26 14:00)
PROC: 0D758DZ Dilation of Esophagus with Intraluminal Device, Via Natural or Artificial Opening Endoscopic (ICD-10-PCS; 2019-10-26 14:00)
DX: I13.0 Hypertensive heart and chronic kidney disease with heart failure and stage 1 through stage 4 chronic kidney disease, or unspecified chronic kidney disease (principal); J18.9 Pneumonia, unspecified organism; J96.01 Acute respiratory failure with hypoxia; I50.33 Acute on chronic diastolic (congestive) heart failure; N17.9 Acute kidney failure, unspecified; Z83.3 Family history of diabetes mellitus; Z82.49 Family history of ischemic heart disease and other diseases of the circulatory system; R00.1 Bradycardia, unspecified; N18.3 Chronic kidney disease, stage 3 (moderate); K21.0 Gastro-esophageal reflux disease with esophagitis; K44.9 Diaphragmatic hernia without obstruction or gangrene; K29.70 Gastritis, unspecified, without bleeding
CPT/HCPCS: 36415; 36600; 43239; 43450; 71045; 71260; 80048; 80053; 80076; 82550; 82553; 82728; 82805; 82948; 83880; 84484; 85025; 85379; 86140; 87040; 88305; 88312; 93005; 93306; 99284; J0456; J0696; J1100; J1650; J1940; J7030; J7050; Q9967; U0002